=== PATIENT | male | born 1945 | race Caucasian/White ===

== ENCOUNTER → 2017-06-20 | Outpatient (REF) ==
[2017-06-20 09:40] LABS: HEMATOCRIT 35.5 % (42.0-52.0); MEAN CORPUSCULAR HEMOGLOBIN 33.2 pg (27.0-33.0); MEAN CORPUSCULAR HGB CONC 33.8 g/dl (32.0-36.5); MEAN CORPUSCULAR VOLUME 98.3 fl (80.0-96.0); PLATELET COUNT, AUTOMATED 217 10^3/uL (150-450); RED BLOOD COUNT 3.61 10^6/uL (4.30-6.10); RED CELL DISTRIBUTION WIDTH 14.7 % (11.5-14.5); WHITE BLOOD COUNT 6.9 10^3/uL (4.0-10.0)
== END ==
DX: Z96.651 Presence of right artificial knee joint (principal); Z79.01 Long term (current) use of anticoagulants

== ENCOUNTER → 2017-06-24 | Outpatient (REF) ==
[2017-06-24 10:38] LABS: HEMATOCRIT 38.8 % (42.0-52.0); MEAN CORPUSCULAR HEMOGLOBIN 33.2 pg (27.0-33.0); MEAN CORPUSCULAR HGB CONC 33.5 g/dl (32.0-36.5); MEAN CORPUSCULAR VOLUME 99.2 fl (80.0-96.0); PLATELET COUNT, AUTOMATED 241 10^3/uL (150-450); RED BLOOD COUNT 3.91 10^6/uL (4.30-6.10); RED CELL DISTRIBUTION WIDTH 14.8 % (11.5-14.5); WHITE BLOOD COUNT 6.8 10^3/uL (4.0-10.0)
[2017-06-24 11:01] LABS: ANION GAP 9 MEQ/L (8-16); BLOOD UREA NITROGEN 8 MG/DL (7-18); CALCIUM LEVEL 8.9 MG/DL (8.8-10.2); CARBON DIOXIDE LEVEL 27 MEQ/L (21-32); CHLORIDE LEVEL 102 MEQ/L (98-107); CREATININE FOR GFR 0.57 MG/DL (0.70-1.30); GLOMERULAR FILTRATION RATE > 60.0 (>42); GLUCOSE, FASTING 122 MG/DL (70-100); POTASSIUM SERUM 4.3 MEQ/L (3.5-5.1); SODIUM LEVEL 138 MEQ/L (136-145)
== END ==
DX: I10 Essential (primary) hypertension (principal)

== ENCOUNTER 2017-12-11 16:58 | Emergency (ER) | payer OTHER ==
[2017-12-11 17:58] LABS: BASO % 0.5 % (0.0-1.0); EOS # 0.2 10^3/uL (0.0-0.50); EOS % 3.7 % (0.0-3.0); HEMATOCRIT 26.8 % (42.0-52.0); HEMOGLOBIN 8.5 g/dl (13.5-17.5); IMMATURE GRANULOCYTE % 0.9 % (0-3.0); LYMPH # 1.7 10^3/uL (1.5-4.5); LYMPH % 30.3 % (24.0-44.0); MEAN CORPUSCULAR HEMOGLOBIN 29.7 pg (27.0-33.0); MEAN CORPUSCULAR HGB CONC 31.7 g/dl (32.0-36.5); MEAN CORPUSCULAR VOLUME 93.7 fl (80.0-96.0); MONO % 17.3 % (0.0-5.0); NEUTROPHILS # 2.7 10^3/uL (1.8-7.7); NEUTROPHILS % 47.3 % (36.0-66.0); PLATELET COUNT, AUTOMATED 160 10^3/uL (150-450); RED BLOOD COUNT 2.86 10^6/uL (4.30-6.10); RED CELL DISTRIBUTION WIDTH 16.5 % (11.5-14.5); WHITE BLOOD COUNT 5.7 10^3/uL (4.0-10.0)
[2017-12-11 18:04] LABS: ANION GAP 9 MEQ/L (8-16); BLOOD UREA NITROGEN 6 MG/DL (7-18); CALCIUM LEVEL 7.9 MG/DL (8.8-10.2); CARBON DIOXIDE LEVEL 26 MEQ/L (21-32); CHLORIDE LEVEL 100 MEQ/L (98-107); CREATININE FOR GFR 0.56 MG/DL (0.70-1.30); GLOMERULAR FILTRATION RATE > 60.0 (>42); GLUCOSE, FASTING 135 MG/DL (70-100); POTASSIUM SERUM 3.6 MEQ/L (3.5-5.1); SODIUM LEVEL 135 MEQ/L (136-145)
[2017-12-11 18:53] LABS: ALBUMIN 2.6 GM/DL (3.2-5.2); ALKALINE PHOSPHATASE 106 U/L (45-117); ALT/SGPT 37 U/L (12-78); AST/SGOT 57 U/L (7-37); BILIRUBIN,DIRECT 0.5 MG/DL (0.0-0.2); BILIRUBIN,TOTAL 1.1 MG/DL (0.2-1.0); C REACTIVE PROTEIN QUANTITATIV 8.22 MG/DL (0.00-0.30); CPK CREATINE PHOSPHOKINASE 275 U/L (39-308); MB/CK RELATIVE INDEX 0.55 (< OR =4); NT-PRO BNP 107 PG/ML (<125); TOTAL PROTEIN 6.3 GM/DL (6.4-8.2); TROPONIN I < 0.02 NG/ML (< 0.10)
== END 2017-12-11 21:42 | disposition short-term general hospital (02) ==
LOC: M ED 16:58
DX: G89.18 Other acute postprocedural pain (principal); E11.21 Type 2 diabetes mellitus with diabetic nephropathy; J44.9 Chronic obstructive pulmonary disease, unspecified; I87.2 Venous insufficiency (chronic) (peripheral); I10 Essential (primary) hypertension; E78.5 Hyperlipidemia, unspecified; M19.90 Unspecified osteoarthritis, unspecified site; M10.9 Gout, unspecified; Z88.8 Allergy status to other drugs, medicaments and biological substances; Z88.5 Allergy status to narcotic agent; Z87.891 Personal history of nicotine dependence; Z79.899 Other long term (current) drug therapy; Z79.82 Long term (current) use of aspirin
CPT/HCPCS: 71045

== ENCOUNTER → 2017-12-11 | Outpatient (REF) ==
[2017-12-11 08:33] LABS: HEMATOCRIT 27.4 % (42.0-52.0); HEMOGLOBIN 8.7 g/dl (13.5-17.5); MEAN CORPUSCULAR HEMOGLOBIN 29.9 pg (27.0-33.0); MEAN CORPUSCULAR HGB CONC 31.8 g/dl (32.0-36.5); MEAN CORPUSCULAR VOLUME 94.2 fl (80.0-96.0); PLATELET COUNT, AUTOMATED 158 10^3/uL (150-450); RED BLOOD COUNT 2.91 10^6/uL (4.30-6.10); RED CELL DISTRIBUTION WIDTH 16.4 % (11.5-14.5); WHITE BLOOD COUNT 4.8 10^3/uL (4.0-10.0)
[2017-12-11 08:56] LABS: AMMONIA 27 uMOL/L (<32)
[2017-12-11 09:13] LABS: ALBUMIN 2.6 GM/DL (3.2-5.2); ALBUMIN/GLOBULIN RATIO 0.68 (1.00-1.93); ALKALINE PHOSPHATASE 102 U/L (45-117); ALT/SGPT 37 U/L (12-78); ANION GAP 9 MEQ/L (8-16); AST/SGOT 56 U/L (7-37); BILIRUBIN,TOTAL 1.4 MG/DL (0.2-1.0); BLOOD UREA NITROGEN 6 MG/DL (7-18); CALCIUM LEVEL 8.3 MG/DL (8.8-10.2); CARBON DIOXIDE LEVEL 29 MEQ/L (21-32); CHLORIDE LEVEL 98 MEQ/L (98-107); CREATININE FOR GFR 0.47 MG/DL (0.70-1.30); GLOMERULAR FILTRATION RATE > 60.0 (>42); GLUCOSE, FASTING 117 MG/DL (70-100); POTASSIUM SERUM 3.5 MEQ/L (3.5-5.1); SODIUM LEVEL 136 MEQ/L (136-145); TOTAL PROTEIN 6.4 GM/DL (6.4-8.2)
[2017-12-11 11:32] LABS: ESTIMATED AVERAGE GLUCOSE 128 MG/DL (60-110); HEMOGLOBIN A1c 6.1 %
== END ==
LOC: SKLAB2 08:00
DX: K74.60 Unspecified cirrhosis of liver (principal); I10 Essential (primary) hypertension; E11.9 Type 2 diabetes mellitus without complications

== ENCOUNTER 2019-04-21 20:20 | Inpatient (IN) | payer OTHER, MEDICARE ==
[~2019-04-21] VITALS: Ht 167.6 cm; Wt 96.5 kg
[~2019-04-21 20:20] MED LIST: ACET65TA; ALBU83IN; ALLO10TA PO; AMLO10TA5 PO; AMLO10TAB; ASPI325T57 PO; ASPI81TA26 PO; ATIV0.5T; CELE40TA; CLAR5CHW; COLA100C5 PO; DULC10SU2 PR; DULO1CAP5 PO; ENEMENE6 PR; FLOM0.4C39 PO; INCR1INH INH; LEVA500T; LISI40TA; LORA10TA3 PO; MILK120011 PO; MOBI4TAB PO; OMEP40CA97 PO; OXYC-517 PO; PRAV40TA; PRED10TA2; PRED5TAB; PRIL20CA; SPIR1CAP; SYMB16INH INH; SYMB80AE; TYLE325T5 PO; VENTAER INH; VITMTA PO
[2019-04-21] MEDS ORDERED: NS 500 ML IV ONE (21:00)
[2019-04-21] MEDS ORDERED: ONDANSETRON 4MG/2ML VIAL (J2405) IV ONE (21:00)
[2019-04-21] MEDS ORDERED: IPRATROPIUM 0.5MG/ALBUTEROL 2.5MG INH SOL UD 3ML (DUONEB)(J7620) NEB PRN (21:00)
[2019-04-21 21:18] LABS: VENOUS BASE EXCESS -3.6 (-2.0-2.0); VENOUS HCO3 19.2 MEQ/L (23.0-27.0); VENOUS O2 SATURATION 99.4 % (60.0-80.0); VENOUS PARTIAL PRESSURE CO2 27.9 mmHg (38.0-50.0); VENOUS PARTIAL PRESSURE O2 161.9 mmHg (30.0-50.0); VENOUS PH 7.456 UNITS (7.330-7.430); VENOUS STANDARD HCO3 21.5 MEQ/L; VENOUS TOTAL CO2 20.1 MEQ/L (24.0-28.0)
[2019-04-21 21:28] LABS: HEMATOCRIT 30.8 % (42.0-52.0); HEMOGLOBIN 10.4 g/dl (13.5-17.5); MEAN CORPUSCULAR HEMOGLOBIN 30.1 pg (27.0-33.0); MEAN CORPUSCULAR HGB CONC 33.8 g/dl (32.0-36.5); MEAN CORPUSCULAR VOLUME 89.3 fl (80.0-96.0); RED BLOOD COUNT 3.45 10^6/uL (4.30-6.10); WHITE BLOOD COUNT 12.3 10^3/uL (4.0-10.0)
[2019-04-21 21:47] LABS: BLOOD UREA NITROGEN 14 MG/DL (7-18); CALCIUM LEVEL 7.8 MG/DL (8.8-10.2); CARBON DIOXIDE LEVEL 20 MEQ/L (21-32); CHLORIDE LEVEL 100 MEQ/L (98-107); CK-MB VALUE MASS < 1.0 NG/ML (<3.6); CPK CREATINE PHOSPHOKINASE 112 U/L (39-308); CREATININE FOR GFR 1.13 MG/DL (0.70-1.30); GLOMERULAR FILTRATION RATE > 60.0 (>42); GLUCOSE, FASTING 137 MG/DL (70-100); MB/CK RELATIVE INDEX 0.89 (< OR =4); NT-PRO BNP 486 PG/ML (<125); POTASSIUM SERUM 4.7 MEQ/L (3.5-5.1); SODIUM LEVEL 131 MEQ/L (136-145); TROPONIN I < 0.02 NG/ML (< 0.10)
[2019-04-21 21:49] LABS: INFLUENZA A AMPLIFICATION NEGATIVE (NEGATIVE); INFLUENZA B AMPLIFICATION NEGATIVE (NEGATIVE)
[2019-04-21 22:16] LABS: PLATELET COUNT, AUTOMATED 66 10^3/uL (150-450)
[2019-04-21 22:25] LABS: LYMPHOCYTES 5 % (16-44); MONOCYTES 4 % (0-5); NEUTROPHILS 78 % (28-66)
[2019-04-21 22:26] LABS: PLATELET ESTIMATE MARKED DECREASE (NORMAL)
[2019-04-21] MEDS ORDERED: methylPREDNISolone INJ 125 MG/2 ML VIAL (J2930) IV ONE (22:30)
[2019-04-21] MEDS ORDERED: ISOVUE-370 76% 100ML VIAL (Q9967) As Ordered ONE (22:44)
--- NOTE | 2019-04-21 23:41 | REPVR ---
PROCEDURE INFORMATION: Exam: CT Angiography Chest With Contrast Exam date and time: 04/21/2019 10:26 PM Age: 73 years old Clinical indication: Shortness of breath; Additional info: Difficulty breathing, SOB, fever TECHNIQUE: Imaging protocol: Computed tomographic angiography of the chest with intravenous contrast. 3D rendering: MIP and/or 3D reconstructed images were created by the technologist. Radiation optimization: All CT scans at this facility use at least one of these dose optimization techniques: automated exposure control; mA and/or kV adjustment per patient size (includes targeted exams where dose is matched to clinical indication); or iterative reconstruction. Contrast material: ISO; Contrast volume: 75 ml; Contrast route: AC; COMPARISON: CR Chest, 2 view PA, Lat 04/21/2019 9:01 PM FINDINGS: Pulmonary arteries: Nondiagnostic for evaluation for pulmonary embolism, secondary to timing of IV contrast. Aorta: Mild atherosclerotic calcifications of the aorta. No evidence of dissection or aneurysm. Lungs: No focal areas of consolidation. Pleural space: No pleural effusion or pneumothorax. Heart: Unremarkable. No pericardial effusion. Liver: Nodular contour to the liver, concerning for cirrhosis. Gallbladder and bile ducts: Hydropic gallbladder. Spleen: Multiple calcified granulomas in the spleen. Intraperitoneal space: Moderate degree of intra-abdominal ascites. Lymph nodes: No enlarged lymph nodes. Bones/joints: Multilevel mild degenerative changes of the visualized spine. Soft tissues: Unremarkable. IMPRESSION: 1. No acute findings in the thorax. Nondiagnostic for evaluation for pulmonary embolism, secondary to timing of IV contrast. 2. Moderate degree of intra-abdominal ascites. 3. Nodular contour to the liver, concerning for cirrhosis. 4. Hydropic gallbladder. Correlate clinically with LFTs. 5. Other chronic findings, as above. Electronically signed by: Dhiraj Hernandez On 04/21/2019 23:41:21 PM
[2019-04-22] VITALS (10 sets, daily range): BP systolic 120–140; BP diastolic 59–76; O2SAT 98
[2019-04-22] MEDS ORDERED: PIPERACILLIN/TAZOBACTAM SOD 3.375 GM in D5W MINI-BAG PLUS 50 ML IV ONE ×2
[2019-04-22] MEDS ORDERED: NS 2,240 ML in IV 1 EA IV ONE (00:30)
--- NOTE | 2019-04-22 00:33 | HPEPDOC ---
[facility] Medical History & Physical Date of Admission Apr 22, 2019 Date of Service: Apr 22, 2019 Attending Physician: MILES GRIFFITH MD History and Physical TIME OF SERVICE: 1:50 AM CHIEF COMPLAINT:, Shortness of breath HISTORY OF PRESENT ILLNESS: Since 73-year-old male who presents with complaints of shortness of breath, worsening of his chronic cough, associated with chills, runny nose and sore t hroat. He denies having fever, muscle aches or weight loss. Per discussion with the ER provider, despite receiving Solu-Medrol and nebs. The patient continues to be short of breath. REVIEW OF SYSTEMS: 12 point review of systems negative except as listed in HPI PAST MEDICAL/ SURGICAL HISTORY: COPD Chronic Hypertension PVD NIDDM with neuropathy Liver cirrhosis Gout Status post left hip surgery Status post bilateral knee surgery SOCIAL HISTORY: He quit smoking FAMILY HISTORY: Diabetes ALLERGIES: Please see below. HOME MEDICATIONS: Please see below. PHYSICAL EXAMINATION: Vital Signs Date Time Temp Pulse Resp B/P (MAP) Pulse Ox O2 Delivery O2 Flow Rate FiO2 04/22/19 05:59 129/63 04/22/19 03:30 98.6 99 21 140/68 (92) 98 Room Air 04/22/19 03:06 98.9 98 24 166/73 (104) 96 Room Air 04/22/19 02:55 04/22/19 00:06 99.5 103 20 122/59 (80) 98 Room Air 04/21/19 21:25 Room Air 04/21/19 20:21 100.3 116 16 129/59 (82) 97 Room Air GEN: well nourished / well developed/ NAD INTEGUMENT: He doesn't have facial plethora , but appears to be slightly jaundice HEENT:NCAT / lips are not cyanotic / he doesn't have pursed lip breathing / mucus membranes moist and pink CVS: RRR/ radial pulses intact LUNGS: He doesn't have nasal flaring /he is able to able to speak full sentences without stopping to take a breath / he is coughing / there is decreased respiratory expansion along with bilateral expiratory wheezing/ is forced expiratory time is > 9 sec ABDOMEN: soft & not tender with palpation MSK/EXTREMITIES: Doesn't have finger nail clubbing NEURO: CN 2-12 are grossly intact / speech is not dysarthric / he doesn't have asterixis PSYCH: alert and oriented to person place and time/ able to understand and follow all commands LABORATORY DATA: IMAGING: CT chest " IMPRESSION: 1. No acute findings in the thorax. Nondiagnostic for evaluation for pulmonary embolism, secondary to timing of IV contrast. 2. Moderate degree of intra-abdominal ascites. 3. Nodular contour to the liver, concerning for cirrhosis. 4. Hydropic gallbladder. Correlate clinically with LFTs. 5. Other chronic findings, as above. " MICROBIOLOGY: Please see below. ASSESSMENT: Mr. Denise is a 73-year-old male with a past history of COPD, hypertension, NIDDM, and liver cirrhosis who is admitted for management of COPD exacerbation, likely due to viral infection. PLAN: 1. SIRS, likely reactive secondary to viral URI. SIRS criteria include HR >90 / WBC >12 or <4 / > RR 20 His initial lactic acid was 5.3 We were unable to identify source of infection. He received Zosyn and IV fluids in the ER Plan: admit to medical floor / telemetry / f/u repeat lactic acid /we will not continue with abx bc we don't have a bacterial source of infection / f/u blood cx / Acetaminophen PRN for fever 2. Acute COPD Trigger may be viral infection Plan: admit to PCU / supplemental O2 / continuous pulse oximetry / aspiration precautions / COPD diet / Dunebs Q6H, Albuterol Q4HP, Prednisone + PPI / refer to Coding Clerks Supervisor for repeat PFTs and Pulmonary Rehab when ready for d/c 3. Chronic Hypertension - Plan: c/w home meds 4. PVD - Plan: c/w home meds 5. Gout - Plan: c/w home meds 6. NIDDM with neuropathy Diabetes - Plan: diabetic diet / f/u accuchecks & A1C / hypoglycemia protocol / sliding scale insulin / hold oral anti-glycemics 7. Liver cirrhosis.- Plan: Follow-up LFTs DVT PROPHYLAXIS: SCDs because of low platelets DISPOSITION: Home after more than 2 midnight's stay Home Medications Scheduled Allopurinol (Allopurinol) 100 Mg Tab, 100 MG PO DAILY Aspirin (Aspirin EC) 81 Mg Tab, 81 MG PO DAILY Budesonide/Formoterol (Symbicort 160-4.5 Mcg Inhaler) 60 Puff/Inhaler Aers, 2 PUFF INH BID Duloxetine Hcl (Duloxetine HCl) 30 Mg Cap, 30 MG PO DAILY Finasteride (Finasteride) 5 Mg Tablet, 5 MG PO DAILY Lisinopril (Lisinopril) 10 Mg Tablet, 10 MG PO QHS Loratadine (Loratadine) 10 Mg Tab, 10 MG PO DAILY Metformin HCl (Metformin HCl) 500 Mg Tablet, 500 MG PO BIDWM Pantoprazole Sodium (Pantoprazole Sodium) 40 Mg Tablet.dr, 40 MG PO BID Polyethylene Glycol 3350 (Miralax) 17 Gm Powd.pack, 17 GM PO DAILY Spironolactone (Spironolactone) 50 Mg Tablet, 50 MG PO DAILY Tiotropium [place] (Spiriva) 18 Mcg Cap.w.dev, 1 INHALATION INH DAILY Scheduled PRN Albuterol Sulf (Albuterol Sulfate) 2.5 Mg/3 Ml Vial.neb, 2.5 MG INH Q6H PRN for SHORTNESS OF BREATH Albuterol Sulfate (Ventolin Hfa) 108 Mcg/Act Aer, 2 PUFFS INH Q6H PRN for SHORTNESS OF BREATH Diclofenac Sodium (Diclofenac Sodium) 1% 100GM Gel..gram., 2 GM TOP Q8H PRN for PAIN USES ON RIGHT HIP AND KNEE Fluticasone Propionate (Flonase Allergy Relief) 9.9 Ml Golden.susp, 2 SPRAYS NA DAILY PRN for NASAL CONGESTION Guaifenesin (Guaifenesin) 400 Mg Tablet, 400 MG PO Q6H PRN for COUGH Lidocaine (Lidocaine) 5% Adh..patch, 1 PATCH TOP DAILY PRN for PAIN USES ON RIGHT HIP AND KNEE Allergies Coded Allergies: aspirin (Verified Allergy, Intermediate, unknown, 04/21/19) A-FIB/CHADSVASC A-FIB History Current/History of A-Fib/PAF?: No Current PO Anticoag Therapy: No MILES GRIFFITH MD Apr 22, 2019 00:33
[2019-04-22] MEDS ORDERED: MOM 30ML SUSPENSION UDC PO PRN (01:00)
[2019-04-22] MEDS ORDERED: MAALOX 30 ML SUSP *UDC PO PRN (01:00)
[2019-04-22] MEDS ORDERED: LEVALBUTEROL 1.25 MG/0.5 ML CONCENTRATE NEB INH PRN (01:00)
[2019-04-22] MEDS ORDERED: GUAI400T9 PO (01:03)
[2019-04-22] MEDS ORDERED: PANT40TA3 PO (01:03)
[2019-04-22] MEDS ORDERED: DICL1GEL3 TOP (01:03)
[2019-04-22] MEDS ORDERED: ALBU83IN INH (01:03)
[2019-04-22] MEDS ORDERED: LISI10TA4 PO (01:03)
[2019-04-22] MEDS ORDERED: METF-839 PO (01:03)
[2019-04-22] MEDS ORDERED: SPIR50TA4 PO (01:03)
[2019-04-22] MEDS ORDERED: MIRA1POW3 PO (01:03)
[2019-04-22] MEDS ORDERED: LIDO5TD TOP (01:03)
[2019-04-22] MEDS ORDERED: SPIR1CAP INH (01:03)
[2019-04-22] MEDS ORDERED: FINA5TAB2 PO (01:03)
[2019-04-22] MEDS ORDERED: FLON1SPR (01:03)
[2019-04-22] MEDS ORDERED: NS 500 ML IV ONE (01:15)
[2019-04-22] MEDS ORDERED: FLUTICASONE PROP 0.05% NASAL SPRAY 16 GM (FLONASE) PRN (02:45)
[2019-04-22] MEDS: IPRATROPIUM 0.5MG/ALBUTEROL 2.5MG INH SOL UD 3ML (DUONEB)(J7620) NEB SCH ×4 (02:55→22:02)
[2019-04-22] MEDS: DOCUSATE SODIUM 100 MG CAP PO SCH ×3 (05:38→20:34)
[2019-04-22] MEDS: ACETAMINOPHEN TAB 650MG DOSE (2X325MG) PO PRN ×2 (05:59→20:36)
[2019-04-22] MEDS: lisinopriL 10 MG TAB PO SCH ×2 (05:59→20:35)
--- NOTE | 2019-04-22 06:01 | ECGEPIP ---
[facility] - ED Test Date: 2019-04-21 Pat Name: GALLITO KIMBROUGH Department: Room: - Gender: Male Trial Paralegal: sb : 1945 Requested By: RIVER Dc PA-C Order Number: [id number] Reading MD: Stefan Hammond Measurements Intervals [place] Rate: 108 P: -1 NC: 148 QRS: 71 QRSD: 82 T: 73 QT: 339 QTc: 455 Interpretive Statements SINUS TACHYCARDIA NO PRIORS FOR COMPARISON Electronically Signed on 04-22-2019 6:01:02 EST by Stefan Hammond
[2019-04-22 07:02] LABS: HEMATOCRIT 28.2 % (42.0-52.0); HEMOGLOBIN 9.5 g/dl (13.5-17.5); MEAN CORPUSCULAR HEMOGLOBIN 30.5 pg (27.0-33.0); MEAN CORPUSCULAR HGB CONC 33.7 g/dl (32.0-36.5); MEAN CORPUSCULAR VOLUME 90.7 fl (80.0-96.0); RED BLOOD COUNT 3.11 10^6/uL (4.30-6.10); WHITE BLOOD COUNT 8.8 10^3/uL (4.0-10.0)
[2019-04-22 07:05] LABS: PLATELET COUNT, AUTOMATED 68 10^3/uL (150-450)
[2019-04-22 07:23] LABS: HEMOGLOBIN A1c 5.3 %
[2019-04-22 07:28] LABS: ALBUMIN 1.8 GM/DL (3.2-5.2); ALT/SGPT 23 U/L (12-78); BILIRUBIN,TOTAL 1.1 MG/DL (0.2-1.0); BLOOD UREA NITROGEN 14 MG/DL (7-18); CALCIUM LEVEL 7.3 MG/DL (8.8-10.2); CARBON DIOXIDE LEVEL 23 MEQ/L (21-32); CHLORIDE LEVEL 101 MEQ/L (98-107); GLOMERULAR FILTRATION RATE > 60.0 (>42); GLUCOSE, FASTING 173 MG/DL (70-100); POTASSIUM SERUM 4.5 MEQ/L (3.5-5.1); SODIUM LEVEL 131 MEQ/L (136-145); TOTAL PROTEIN 6.8 GM/DL (6.4-8.2)
--- NOTE | 2019-04-22 07:51 | REP ---
PA and lateral chest: Comparison is the portable chest dated 12/11/2017. The lung portillo are clear. The cardiac size is normal. The marina, mediastinum, and skeletal structures are unremarkable. Impression: Negative PA and lateral chest. There is no interval change. Electronically Signed by Geoffrey Mei MD 04/22/2019 07:43 A
[2019-04-22] MEDS: TIOTROPIUM INHALER/CAPSULE (SPIRIVA) INH SCH (08:45)
[2019-04-22] MEDS: MIRALAX *UNIT DOSE* 17GM PACKET PO SCH ×2 (09:00→10:26)
[2019-04-22] MEDS ORDERED: predniSONE 20 MG TAB PO SCH (09:00)
--- NOTE | 2019-04-22 09:53 | REP ---
Limited abdominal ultrasound for ascites: All four quadrants of the abdomen and the right and left flanks are evaluated. There is minimal ascites. Paracentesis is not performed. Electronically Signed by Geoffrey Mei MD 04/22/2019 09:44 A
[2019-04-22] MEDS: DULoxetine 30 MG CAP (CYMBALTA) PO SCH (10:25)
[2019-04-22] MEDS: PANTOPRAZOLE 40MG TAB (PROTONIX) PO SCH (10:25)
[2019-04-22] MEDS: SPIRONOLACTONE 50 MG TAB PO SCH (10:26)
[2019-04-22] MEDS: FINASTERIDE 5 MG TAB PO SCH (10:26)
[2019-04-22] MEDS: LORATADINE 10 MG TAB PO SCH (10:26)
[2019-04-22] MEDS: LIDOCAINE 5% (LIDODERM) PATCH TOP PRN (10:26)
[2019-04-22] MEDS: allopurinoL 100 MG TAB PO SCH (10:26)
--- NOTE | 2019-04-22 11:29 | IPNPDOC ---
Text Note Date of Service The patient was seen on 04/22/19. NOTE Subjective: Patient is 73-year-old male with a PMHx of Liver cirrhosis, HTN, PVD, COPD, NIDDM2, Neuropathy, Gout . Presented to the emergency room with complaints of shortness of breath, worsening of his productive cough, associated chills and symptoms of an upper respiratory tract infection. Patient was admitted to hospitalist service for further evaluation and treatment Patient was seen and examined at the bedside. Patient is that he still is short of breath. Denies chest pain, palpitations, nausea, vomiting. Has been extrinsic a productive cough. Denies any diarrhea, constipation or abdominal pain. Denies any urinary discomfort Objective: Vitals (See below) General: Lying in bed, no acute distress, comfortable, AAOx3 HEENT: NC, AT CVS: RRR, +S1S2 Lungs: Fair air entry b/l, no wheezing / rhonchi, mild crackles appreciated at bases Abdomen: Soft, mild distension, NT Extremities: Trace pitting edema, - Calf tenderness Assessment and plan: Shortness of breath - likely 2/2 acute exacerbation of COPD - Presented to the ER with complaints of shortness of breath associated with productive cough and URTI symptoms - Physical does not reveal any evidence of significant wheezing at this time - Influenza negative - CTA chest 04/21: 1. No acute findings in the thorax. Nondiagnostic for ev aluation for pulmonary embolism, secondary to timing of IV contrast. 2. Moderate degree of intra-abdominal ascites. 3. Nodular contour to the liver, concerning for cirrhosis. 4. Hydropic gallbladder. Correlate clinically with LFTs. 5. Other chronic findings, as above. - Will check respiratory panel today - c/w inhaled therapy as ordered - c/w corticosteroid therapy Preliminary positive blood cultures (1 of 2 bottles) - possibly 2/2 contaminant - Clinically patient is afebrile and hemodynamically stable - Blood cultures 04/21 (1 of 2): Gram positive cocci in clusters - Will repeat blood cultures - Will check procalcitonin - Was given a single dose of Zosyn in the emergency room Lactic acidosis - likely 2/2 respiratory etiology - 2/2 work of breathing - Continue with management of COPD as delineated above HTN - BP remains well controlled - c/w Lisinopril PVD - Currently not on any medications Gout - c/w Allopurinol NIDDM with neuropathy - c/w ISS BPH - c/w Finasteride Cirrhosis - Some abdominal distension noted - Will check US of abdomen GERD - c/w Protonix DVT prophylaxis - c/w TEDs/ Sequentials (re: Thrombocytopenia) VS,Fishbone, I+O VS, Fishbone, I+O Laboratory Tests 04/21/19 21:04 04/22/19 06:45 Vital Signs Date Time Temp Pulse Resp B/P (MAP) Pulse Ox O2 Delivery O2 Flow Rate FiO2 04/22/19 10:00 98.0 105 18 126/63 (84) 96 Room Air I&O- Last 24 Hours up to 6 AM 04/22/19 06:00 Intake Total 2790 ml Output Total 0 ml Balance 2790 ml MAUREEN LOWRY MD Apr 22, 2019 11:29
[2019-04-22] MEDS ORDERED: GLUCOSE 4 GM CHEW TABLET PO PRN (11:30)
[2019-04-22] MEDS ORDERED: GLUCAGON FOR INJ 1 MG VIAL (J1610) SC PRN (11:30)
[2019-04-22] MEDS ORDERED: DEXTROSE 50% 50 ML SYRINGE IV PRN (11:30)
[2019-04-22] MEDS ORDERED: ALBUTEROL SULFATE 2.5 MG/0.5 ML INH NEB SOLN INH PRN (12:00)
[2019-04-22 12:22] LABS: ABG BASE EXCESS -2.7 (-2.0-2.0); ABG HCO3 19.7 MEQ/L (22.0-26.0); ABG O2 SATURATION 96.9 % (95.0-99.0); ABG PARTIAL PRESSURE O2 83.2 mmHg (75.0-100.0); ABG STANDARD HCO3 22.2 MEQ/L (22.0-26.0); ABG TOTAL CO2 20.6 MEQ/L (23.0-31.0); ABG pH (ARTERIAL) 7.482 UNITS (7.350-7.450)
[2019-04-22] MEDS: HumaLOG INSULIN (NovoLOG) PER UNIT SC SCH ×3 (12:30→20:35)
[2019-04-22] MEDS ORDERED: FUROSEMIDE 40 MG/4 ML VIAL (J1940) IV ONE (13:00)
[2019-04-22] MEDS ORDERED: methylPREDNISolone INJ 125 MG/2 ML VIAL (J2930) IV ONE (13:00)
--- NOTE | 2019-04-22 13:08 | REP ---
Chest x-ray: Single view. History: Shortness of breath. Comparison chest x-ray: December 11, 2017. Findings: EKG monitoring electrodes overlie the chest. Lungs are well inflated and clear. Pleural angles are sharp. Heart size is normal. No significant bony abnormality. Impression: No acute disease. Electronically Signed by Graham Coreas MD 04/22/2019 01:00 P
[2019-04-22 13:11] LABS: CK-MB VALUE MASS 2.3 NG/ML (<3.6); CPK CREATINE PHOSPHOKINASE 148 U/L (39-308); MB/CK RELATIVE INDEX 1.55 (< OR =4); TROPONIN I < 0.02 NG/ML (< 0.10)
[2019-04-22] MEDS ORDERED: ALBUTEROL SULFATE 2.5 MG/0.5 ML INH NEB SOLN INH SCH (16:00)
[2019-04-22] MEDS: methylPREDNISolone INJ 125 MG/2 ML VIAL (J2930) IV SCH (20:35)
[2019-04-22] MEDS: CEPACOL LOZENGE PO PRN ×2 (20:37→23:55)
[2019-04-22] MEDS ORDERED: **NOTE PATIENT COMMENT** MISC XX PRN (21:00)
[2019-04-22] MEDS: guaiFENesin 200 MG TAB PO PRN (21:52)
[2019-04-23] VITALS (30 sets, daily range): BP systolic 113–171; BP diastolic 53–79; O2SAT 95–99
[2019-04-23] MEDS: IPRATROPIUM 0.5MG/ALBUTEROL 2.5MG INH SOL UD 3ML (DUONEB)(J7620) NEB SCH ×6 (01:55→23:36)
[2019-04-23] MEDS ORDERED: FUROSEMIDE 40 MG/4 ML VIAL (J1940) IV ONE (03:15)
[2019-04-23] MEDS ORDERED: cefTRIAXone SOD 1 GM in D5W MINI-BAG PLUS 50 ML IV SCH (04:00)
[2019-04-23] MEDS: CEPACOL LOZENGE PO PRN (04:03)
[2019-04-23] MEDS: guaiFENesin 200 MG TAB PO PRN (04:03)
[2019-04-23] MEDS: LEVALBUTEROL 1.25 MG/0.5 ML CONCENTRATE NEB INH PRN ×2 (04:31→22:19)
[2019-04-23] MEDS: GASTROGRAFIN SOLUTION 30ML PO SCH ×2 (05:00→18:00)
[2019-04-23] MEDS: methylPREDNISolone INJ 125 MG/2 ML VIAL (J2930) IV SCH (05:34)
[2019-04-23 06:24] LABS: ABG BASE EXCESS -2.2 (-2.0-2.0); ABG HCO3 19.3 MEQ/L (22.0-26.0); ABG O2 SATURATION 99.2 % (95.0-99.0); ABG PARTIAL PRESSURE O2 121.6 mmHg (75.0-100.0); ABG STANDARD HCO3 22.6 MEQ/L (22.0-26.0); ABG TOTAL CO2 20.1 MEQ/L (23.0-31.0); ABG pH (ARTERIAL) 7.524 UNITS (7.350-7.450)
[2019-04-23 06:31] LABS: HEMATOCRIT 28.1 % (42.0-52.0); HEMOGLOBIN 9.9 g/dl (13.5-17.5); MEAN CORPUSCULAR HEMOGLOBIN 30.5 pg (27.0-33.0); MEAN CORPUSCULAR HGB CONC 35.2 g/dl (32.0-36.5); MEAN CORPUSCULAR VOLUME 86.5 fl (80.0-96.0); RED BLOOD COUNT 3.25 10^6/uL (4.30-6.10); WHITE BLOOD COUNT 14.4 10^3/uL (4.0-10.0)
[2019-04-23 06:39] LABS: PLATELET COUNT, AUTOMATED 60 10^3/uL (150-450)
[2019-04-23 06:53] LABS: BLOOD UREA NITROGEN 22 MG/DL (7-18); CALCIUM LEVEL 7.4 MG/DL (8.8-10.2); CARBON DIOXIDE LEVEL 21 MEQ/L (21-32); CHLORIDE LEVEL 95 MEQ/L (98-107); GLOMERULAR FILTRATION RATE > 60.0 (>42); GLUCOSE, FASTING 175 MG/DL (70-100); MAGNESIUM LEVEL 1.2 MG/DL (1.8-2.4); POTASSIUM SERUM 4.3 MEQ/L (3.5-5.1); SODIUM LEVEL 125 MEQ/L (136-145)
[2019-04-23] MEDS: ACETAMINOPHEN TAB 650MG DOSE (2X325MG) PO PRN (07:01)
[2019-04-23] MEDS: HumaLOG INSULIN (NovoLOG) PER UNIT SC SCH ×4 (07:30→20:31)
[2019-04-23] MEDS: TIOTROPIUM INHALER/CAPSULE (SPIRIVA) INH SCH (07:53)
[2019-04-23] MEDS ORDERED: VANCOMYCIN HCL 1,000 MG, VIAL MATE ADAPTER 1 EACH in D5W 250 ML IV ONE (08:00)
[2019-04-23 08:59] LABS: NT-PRO BNP 929 PG/ML (<125)
[2019-04-23] MEDS: FUROSEMIDE 100 MG/10 ML VIAL (J1940) IV SCH ×4 (09:00→22:13)
[2019-04-23] MEDS ORDERED: MAGNESIUM OXIDE 400 MG TAB (MAG-OX) PO ONE (10:00)
[2019-04-23 10:14] LABS: ALBUMIN 1.9 GM/DL (3.2-5.2); BILIRUBIN,DIRECT 0.6 MG/DL (0.0-0.2); TOTAL PROTEIN 6.5 GM/DL (6.4-8.2)
[2019-04-23] MEDS: VANCOMYCIN HCL 1,000 MG, VIAL MATE ADAPTER 1 EACH in D5W 250 ML IV SCH ×2 (10:24→20:34)
[2019-04-23] MEDS: LORATADINE 10 MG TAB PO SCH (10:26)
[2019-04-23] MEDS: ASPIRIN 81 MG ENTERIC TAB PO SCH (10:26)
[2019-04-23] MEDS: SPIRONOLACTONE 50 MG TAB PO SCH (10:26)
[2019-04-23] MEDS: PANTOPRAZOLE 40MG TAB (PROTONIX) PO SCH (10:26)
[2019-04-23] MEDS: allopurinoL 100 MG TAB PO SCH (10:26)
[2019-04-23] MEDS: FINASTERIDE 5 MG TAB PO SCH (10:27)
[2019-04-23] MEDS: DOCUSATE SODIUM 100 MG CAP PO SCH ×2 (10:27→20:31)
[2019-04-23] MEDS: DULoxetine 30 MG CAP (CYMBALTA) PO SCH (10:27)
[2019-04-23] MEDS: MIRALAX *UNIT DOSE* 17GM PACKET PO SCH (10:36)
[2019-04-23] MEDS: MAG SULF 1GM/100ML (MAG RUN) 1 GM in IV 1 EA IV SCH ×2 (10:37→11:58)
[2019-04-23] MEDS ORDERED: POTASSIUM CHLORIDE 10 MEQ SR TABLET PO ONE (13:45)
--- NOTE | 2019-04-23 13:51 | IPNPDOC ---
Text Note Date of Service The patient was seen on 04/23/19. NOTE Subjective: Patient was seen and examined at the bedside. He has had tachypnea and tachycardia overnight, as well as increased work of breathing. His shortness of breath has not improved, and he says that he is unable to lie flat. He says that he feels like he is more swollen, especially in his lower legs and his abdomen. Objective: Vitals (See below) General: Propped up in bed, moderate respiratory distress HEENT: Sclera anicteric, mucous membranes are moist Neck: Obese, JVD unable to be adequately assessed Heart: Heart sounds are faint but tachycardic. No appreciable murmurs, gallops, or rubs Lungs: Increased accessory muscle usage, diffuse but mild inspiratory and expiratory rales, especially at the bases Abdomen: Obese, nonpitting edema in the dependent parts of the abdomen. Normoactive bowel sounds. Nondistended. Back: Sacral edema noted. Extremities: Nonpitting dependent edema diffusely up the thighs Assessment: Patient is 73-year-old male who presented to the emergency room with complaints of shortness of breath, worsening of his productive cough, associated chills and symptoms of an upper respiratory tract infection. Patient was admitted to hospitalist service, and given 6 L of IV fluids. He developed worsening shortness of breath, and is suspected to be fluid overloaded. Plan: Shortness of breath - likely secondary to fluid overload, +4 L fluid balance; transferred to ICU for increased work of breathing and moderate respiratory distress - Apparently is +20 pounds from his last outpatient office visit - Physical does not reveal any evidence of significant wheezing at this time. Influenza negative. Respiratory panel negative. - CTA chest 04/21: No acute findings in the thorax. Nondiagnostic for evaluation for pulmonary embolism, secondary to timing of IV contrast. - Steroids discontinued as this is not an exacerbation of COPD, c/w inhaled therapy as ordered - will diurese with Lasix 80 mg IV BID, BNP elevated compared to admission - ECHO ordered STAT, pending report Sepsis secondary to Staph aureus bacteremia, source unknown - First set of blood cultures positive for staph aureus bacteremia; second set of blood cultures show gram-positive cocci in clusters - Clinically patient is afebrile and hemodynamically stable - IV vancomycin - Will repeat blood cultures - Procalcitonin pending - Dr. Mason consulted, appreciate her help Lactic acidosis - likely 2/2 staph aureus bacteremia - IV vancomycin, clinically fluid overloaded HTN - BP remains well controlled - c/w Lisinopril - Currently being diuresed with Lasix PVD - Currently not on any medications Gout - c/w Allopurinol NIDDM with neuropathy - c/w ISS BPH - c/w Finasteride Cirrhosis - Some abdominal distension noted - Ultrasound of the abdomen did not show any pockets for paracentesis GERD - c/w Protonix DVT prophylaxis - c/w TEDs/ Sequentials (re: Thrombocytopenia) Disposition: Pending clinical improvement VS,Fishbone, I+O VS, Fishbone, I+O Laboratory Tests 04/23/19 06:18 Vital Signs Date Time Temp Pulse Resp B/P (MAP) Pulse Ox O2 Delivery O2 Flow Rate FiO2 04/23/19 12:40 98.5 111 27 158/77 100 Room Air I&O- Last 24 Hours up to 6 AM 04/23/19 06:00 Intake Total 3870 ml Output Total 2300 ml Balance 1570 ml GME ATTESTATION GME ATTESTATION My faculty preceptor for this patient encounter was physically present during the encounter and was fully available. All aspects of the patient interview, examination, medical decision making process, and medical care plan development were reviewed and approved by the faculty preceptor. The faculty preceptor is aware and concurs with the plan as stated in the body of this note and will attest to such by his/her cosignature. ATTENDING NOTE I, Zoe Lowry, have independently examined this patient and performed my own physical exam, as well as reviewed the documentation and edited where necessary. I have discussed in detail with the resident / student the findings and plan of treatment as documented by the resident / student and edited their note. I agree with their findings and treatment plan and have edited their documentation. I will continue to follow the patient during this hospital stay. Critical care time of 49 minutes DIANE IBARRA D.O. Apr 23, 2019 13:51 ZOE LOWRY MD Apr 23, 2019 16:08
[2019-04-23 14:05] LABS: HEMATOCRIT 27.1 % (42.0-52.0); HEMOGLOBIN 9.5 g/dl (13.5-17.5); MEAN CORPUSCULAR HEMOGLOBIN 30.9 pg (27.0-33.0); MEAN CORPUSCULAR HGB CONC 35.1 g/dl (32.0-36.5); MEAN CORPUSCULAR VOLUME 88.3 fl (80.0-96.0); RED BLOOD COUNT 3.07 10^6/uL (4.30-6.10); WHITE BLOOD COUNT 18.5 10^3/uL (4.0-10.0)
[2019-04-23 14:07] LABS: PLATELET COUNT, AUTOMATED 55 10^3/uL (150-450)
[2019-04-23 14:25] LABS: BLOOD UREA NITROGEN 24 MG/DL (7-18); CALCIUM LEVEL 7.4 MG/DL (8.8-10.2); CARBON DIOXIDE LEVEL 20 MEQ/L (21-32); CHLORIDE LEVEL 93 MEQ/L (98-107); CREATININE FOR GFR 1.01 MG/DL (0.70-1.30); GLOMERULAR FILTRATION RATE > 60.0 (>42); GLUCOSE, FASTING 227 MG/DL (70-100); MAGNESIUM LEVEL 1.9 MG/DL (1.8-2.4); POTASSIUM SERUM 4.4 MEQ/L (3.5-5.1); SODIUM LEVEL 124 MEQ/L (136-145)
[2019-04-23 14:31] LABS: ATYPICAL LYMPH 1 % (0-5); DOHLE BODIES 1+; LYMPHOCYTES 3 % (16-44); METAMYELOCYTES 1 % (0-0); MONOCYTES 4 % (0-5); NEUTROPHILS 76 % (28-66); PLATELET ESTIMATE DECREASED (NORMAL); TOXIC GRANULATION 1+; TOXIC VACUOLATION 1+
[2019-04-23 14:32] LABS: HYPOCHROMASIA 1+
[2019-04-23 14:38] LABS: ANISOCYTOSIS 1+; POIKILOCYTOSIS 1+
--- NOTE | 2019-04-23 16:52 | ECGEPIP ---
[facility] Test Date: 2019-04-22 Pat Name: GALLITO KIMBROUGH Department: Room: [place] [address] Gender: Male Normalizer: MIRIAM : 1945 Requested By: MAUREEN LOWRY Order Number: [id number] Reading MD: Armando Dang Measurements Intervals [place] Rate: 103 P: 77 SD: 196 QRS: 70 QRSD: 85 T: 53 QT: 348 QTc: 457 Interpretive Statements SINUS TACHYCARDIA ABNORMAL RHYTHM ECG Electronically Signed on 04-23-2019 16:52:12 EST by Armando Dang
--- NOTE | 2019-04-23 17:15 | REP ---
CT PELVIS WITHOUT IV CONTRAST: Sagittal and coronal reconstruction images are performed. There are degenerative changes of the lower lumbar spine with mild joint space narrowing at all levels. There is a vacuum phenomenon at L3-4. There is sclerosis and spurring at the posterior facet joints. There appears to have been a laminectomy at the L5 level previously. There is a total left hip prosthesis in good position with no adjacent osseous abnormality. There is severe arthritic change at the right hip joint, with severe joint space narrowing, subchondral sclerosis and cystic change. There is mild spurring of the right femoral head and acetabulum. Articular surface of the femoral head is mildly flattened and irregular. The appearance suggests underlying avascular necrosis of the right femoral head. I see no acute fracture. I see no adenopathy in the pelvis. There is mild free fluid in the pelvis. There is sigmoid diverticulosis noted. There is a Reeves catheter in a collapsed urinary bladder. IMPRESSION: No acute fracture or dislocation. Degenerative changes of lower lumbar spine. Total left hip prosthesis in good position. 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 There is mild free fluid in the pelvis. Electronically Signed by Geoffrey Camacho MD 04/23/2019 05:42 P
[2019-04-23] MEDS ORDERED: GASTROGRAFIN SOLUTION 30ML (Q9963) As Ordered ONE (17:31)
[2019-04-23 18:32] LABS: BLOOD UREA NITROGEN 24 MG/DL (7-18); CALCIUM LEVEL 7.2 MG/DL (8.8-10.2); CARBON DIOXIDE LEVEL 23 MEQ/L (21-32); CHLORIDE LEVEL 93 MEQ/L (98-107); CREATININE FOR GFR 0.83 MG/DL (0.70-1.30); GLOMERULAR FILTRATION RATE > 60.0 (>42); GLUCOSE, FASTING 160 MG/DL (70-100); POTASSIUM SERUM 4.2 MEQ/L (3.5-5.1); SODIUM LEVEL 125 MEQ/L (136-145)
[2019-04-23] MEDS ORDERED: ISOVUE-370 76% 100ML VIAL (Q9967) As Ordered ONE (19:20)
--- NOTE | 2019-04-23 20:13 | REPVR ---
PROCEDURE INFORMATION: Exam: CT Abdomen And Pelvis With Contrast Exam date and time: 04/23/2019 7:22 PM Age: 73 years old Clinical indication: Condition or disease; Other: Staph aureus sepsis TECHNIQUE: Imaging protocol: Computed tomography of the abdomen and pelvis with intravenous contrast. Radiation optimization: All CT scans at this facility use at least one of these dose optimization techniques: automated exposure control; mA and/or kV adjustment per patient size (includes targeted exams where dose is matched to clinical indication); or iterative reconstruction. Contrast material: ISOVUE 370; Contrast volume: 100 ml; Contrast route: IV; Other contrast: Oral, gastrografin; COMPARISON: CT Pelvis without contrast 04/23/2019 3:47 PM FINDINGS: Liver: Examination of the liver demonstrates a lobular surface contour, and enlargement of the left and caudate lobes, findings consistent with cirrhosis. Hepatic steatosis. Gallbladder and bile ducts: Normal. No calcified stones. No ductal dilation. Pancreas: There is diffuse pancreatic atrophy. Peripancreatic lymphadenopathy measures up to 10 mm. Spleen: The spleen demonstrates punctate calcifications, consistent with remote granulomatous organism exposure. Adrenals: Normal. No mass. Kidneys and ureters: Small simple right renal cyst measures 10 mm. Stomach and bowel: Mild diverticulosis is present in the distal colon. No diverticulitis. Appendix: No evidence of appendicitis. Intraperitoneal space: There is a small amount of free intraperitoneal fluid present. Vasculature: The aorta demonstrates moderate atherosclerotic calcification. Calcification demonstrated in the common femoral artery on the right resulting in a high-grade stenosis, possibly occlusive. Numerous portosystemic collaterals demonstrated involving the paraumbilical veins, splenorenal and possibly perirectal regions. Lymph nodes: Unremarkable. No enlarged lymph nodes. Bladder: Thick-walled urinary bladder contains air within the bladder likely iatrogenic secondary to the presence of a Reeves catheter. Clinical correlation to exclude cystitis suggested. Reproductive: Unremarkable as visualized. Bones/joints: Status post total hip replacement on the left. Soft tissues: There is soft tissue edema demonstrated in the abdominal wall, flanks and buttock regions consistent with anasarca. IMPRESSION: 1. Anasarca. 2. Examination of the liver demonstrates a lobular surface contour, and enlargement of the left and caudate lobes, findings consistent with cirrhosis. Hepatic steatosis. 3. There is diffuse pancreatic atrophy. 4. There is a small amount of free intraperitoneal fluid present. 5. Mild diverticulosis is present in the distal colon. No diverticulitis. 6. Thick-walled urinary bladder contains air within the bladder likely iatrogenic secondary to the presence of a Reeves catheter. Clinical correlation to exclude cystitis suggested. 7. Calcification demonstrated in the common femoral artery on the right resulting in a high-grade stenosis, possibly occlusive. 8. Small simple right renal cyst. COMMENTS: Consistent with the [employer]'s Incidental Findings Committee white paper (J Am Reid Radiol 2018): Any incidental cystic renal lesion classified in this report as too small to characterize or simple appearing is likely a benign cyst. No follow-up imaging is recommended for these lesions per consensus recommendations based on imaging criteria. Electronically signed by: Maxim Hsu On 04/23/2019 20:13:26 PM
[2019-04-23] MEDS: lisinopriL 10 MG TAB PO SCH (20:33)
--- NOTE | 2019-04-23 22:19 | ECHO ---
DATE OF PROCEDURE: 04/23/2019 Date of : 1945 Age: 73 REFERRING PHYSICIAN: Dr. Yen Desir PATIENT LOCATION: Room 3208 REASON FOR ECHOCARDIOGRAM: Shortness of breath. 2D MEASUREMENTS: IVS: 0.9 cm LV: 4.9 cm LVPW: 0.9 cm LA: 4.1 cm Aorta: 2.8 cm RV: 3.4 cm IVC: 2.1 cm DOPPLER MEASUREMENTS: Peak velocity across the aortic valve: 1.6 m/s Peak velocity across the LVOT: 1.1 m/s Peak gradient across the aortic valve: 10 mmHg Mean gradient across the aortic valve: 5 mmHg Mitral E: 1.4, Mitral A: 1.2 with a ratio of 1.1 2D COMMENTS: 1. Normal left ventricular size, wall thickness, and normal global left ventricular systolic function. The estimated left ventricular systolic ejection fraction is 60-65%. 2. Mildly enlarged left atrium. Normal right atrium and right ventricle. 3. The atrial septum appeared to be normal without evidence of defect or shunt. 4. Normal aortic root. 5. Trace pericardial effusion noted, no evidence of cardiac tamponade. 6. Mildly calcified aortic valve with normal leaflet excursion. Mildly calcified mitral annulus with normal anterior mitral valve leaflet motion. Normal tricuspid valve. The pulmonic valve and proximal pulmonary artery branches were not well visualized. 7. The inferior vena cava was dilated, central venous pressure might be elevated. DOPPLER: Doppler detects mild mitral regurgitation, trace tricuspid regurgitation. IMPRESSION 1. Normal global left ventricular systolic and diastolic function. 2. Aortic valve sclerosis with trivial aortic stenosis but no aortic regurgitation. 3. Mitral annulus calcification with mildly enlarged left atrium and mild mitral regurgitation. 4. Trace pericardial effusion. 5. The inferior vena cava was mildly enlarged, central venous pressure might be elevated. MTDD
--- NOTE | 2019-04-23 22:42 | CR ---
DATE OF CONSULTATION: 04/23/2019 REFERRING PHYSICIAN: Dr. Garza / Dr. Desir, Hospitalist REASON FOR CONSULTATION: Evaluation of staphylococcus aureus bacteremia. HISTORY OF PRESENT ILLNESS: Mr. Denise is a 73-year-old gentleman with a history of chronic obstructive pulmonary disease (COPD), congestive heart failure and liver cirrhosis who presented complaining of increasing shortness of breath of one day duration associated with fever and shaking chills. The patient has a chronic cough which has been worsening, complained of some runny nose. He also was complaining of increasing right hip pain 10/10. He states he is not able to stand on the right side. He had documented a temperature of 100.3 in the ER. He denied any muscle aches, weight loss. The patient had some dry heaves, but no vomiting and no diarrhea. No abdominal pain. He has a history of prostate issues and stated he had some dysuria that had started sometime in December when he was hospitalized at the [facility]. He was there for about a month. He was also hospitalized in February. I tried to access [facility] for the records and was not able to obtain them. 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 PAST MEDICAL HISTORY: Significant for COPD on nebs four times a day. Sleep apnea. He has a BiPap mask which he could not tolerate and therefore does not use. Hypertension. Peripheral vascular disease, status post stenting of the left leg. Non insulin-dependent diabetes with neuropathy. Not on insulin. Liver cirrhosis. He states that they told him it was alcoholic, but he states he did not drink that heavily. History of gout. PAST SURGICAL HISTORY Status post right total knee replacement. Left knee surgery. Left total hip replacement in 2018. Lumbar fusion. SOCIAL HISTORY: He quit smoking and drinking. FAMILY HISTORY: Significant for diabetes. ALLERGIES: ASPIRIN. MEDICATIONS - Furosemide 80 mg IV every 6 hours - vancomycin 1 gram IV every 12 hours - ceftriaxone 1 gram IV every 24. Today is day #1. - He received one dose of Zosyn yesterday on 04/22 - albuterol 1.25 every 2 as needed (p.r.n.) - insulin sliding scale - Cepacol lozenges as needed - albuterol/Atrovent nebs every 4 - pantoprazole 40 mg by mouth daily - allopurinol 100 mg by mouth daily - duloxetine 30 mg by mouth daily - finasteride 5 mg by mouth daily - loratadine 10 mg by mouth daily - MiraLax 1 packet by mouth daily - spironolactone 50 mg by mouth daily - Spiriva 1 inhalation daily - fluticasone 2 sprays daily as needed - docusate 100 mg by mouth twice a day - lisinopril 10 mg by mouth at bedtime LABORATORY DATA White count on admission was 12.3, 04/22 it was 8.8. Today was 18.5. Hemoglobin 9.5, hematocrit 27.1, platelets 55, 76% neutrophils, 15% bands, 3% lymphocytes, 4% monocytes. Sodium 124, potassium 4.4, chloride 93, bicarb 20, BUN 24, creatinine 1, glucose 227, lactic acid 5.9, which has increased from yesterday of 2.8, BNP 929, albumin 1.9. Influenza A and B was negative. Urinalysis had +2 leukocyte esterase, 42 white cells. 04/21 two sets of blood cultures were positive for staph aureus drawn 20 hours apart on 04/22. Two more sets of blood cultures are positive for staph aureus. Respiratory panel is negative. Urine culture is pending. IMAGING: Chest x-ray showed no acute disease. CT angiogram showed no evidence of pulmonary embolism and no acute infiltrates. No pericardial effusions. Liver consistent with cirrhosis and moderate degree of intra-abdominal ascites, hydropic gallbladder. Abdominal ultrasound was limited for ascites which was minimal and therefore paracentesis was not performed. PHYSICAL EXAMINATION: He is a sick looking gentleman sitting in a chair in mild respiratory discomfort. Temperature is 97.8, pulse 110, respirations 28, blood pressure 113/53, O2 sat 98-99% on room air. Heart: Normal S1, S2. Tachycardic. Distant. Lungs: Decreased breath sounds bilaterally with few exterior wheezes, diminished at bases. Abdomen: Distended, soft, nontender. No hepatosplenomegaly. Extremities: Trace ankle edema bilaterally. No clubbing, cyanosis, no calf tenderness. No lesions, petechiae or suggestive of endocarditis. Right total knee replacement with normal range of motion. Musculoskeletal examination: Right total knee replacement with normal range of motion. Left knee surgical scar medially, well healed. Right hip pain with flexion, although there is some pitting edema at the hip area bilaterally. There is no redness. Lumbar spine: Healed scar of lumbar fusion with mild lumbosacral tenderness. REVIEW OF SYSTEMS The patient had one episode of nausea but this has resolved. No vomiting or diarrhea. No abdominal pain. He has dysuria and frequency. He has problems with his prostate that has been evaluated by urology. He also complains of hoarseness; had an ENT appointment to be seen at the [facility] on Friday, but this will be cancelled. He denies any sore throat. No headache or neck stiffness. No upper or lower extremity weakness. He complains of significant right hip pain. IMPRESSION This is a 73-year-old gentleman with a history of COPD, congestive heart failure, MRSA carrier who presented with 24 hours of the fever, shaking chills and was found to have bacteremia for the past 48 hours. He has received Zosyn and ceftriaxone along with vancomycin. This is most likely MRSA sepsis. His lactic acidosis has remained elevated. Possible foci of infection would be endocarditis versus right hip infection/psoas infection. The patient complains of right- sided hip pain. He has prosthesis in his right knee and left hip, but these seem to not be involved currently with the infection. PLAN Discontinue IV Rocephin. There is no need for double coverage. This is very likely MRSA bacteremia he is known MRSA carrier. Continue with IV vancomycin 1 gram every 12 hours. Repeat blood cultures two sets tomorrow to document clearance of bacteremia and make sure we have negative cultures documented. Add ESR, CRP. Will obtain CT abdomen and pelvis to rule out a pelvic abscess or hip abscess, psoas abscess with contrast. Transthoracic echocardiogram was done today, the results of which are still pending. If they are negative the patient will need a transesophageal echocardiogram next week. [facility]
[2019-04-24] VITALS (24 sets, daily range): BP systolic 128–152; BP diastolic 65–78; O2SAT 73–100
[2019-04-24] MEDS: IPRATROPIUM 0.5MG/ALBUTEROL 2.5MG INH SOL UD 3ML (DUONEB)(J7620) NEB SCH ×6 (04:10→23:46)
[2019-04-24] MEDS: FUROSEMIDE 100 MG/10 ML VIAL (J1940) IV SCH ×4 (04:54→22:40)
[2019-04-24 05:30] LABS: HEMATOCRIT 27.2 % (42.0-52.0); HEMOGLOBIN 9.6 g/dl (13.5-17.5); MEAN CORPUSCULAR HEMOGLOBIN 30.4 pg (27.0-33.0); MEAN CORPUSCULAR HGB CONC 35.3 g/dl (32.0-36.5); MEAN CORPUSCULAR VOLUME 86.1 fl (80.0-96.0); RED BLOOD COUNT 3.16 10^6/uL (4.30-6.10); WHITE BLOOD COUNT 16.3 10^3/uL (4.0-10.0)
[2019-04-24 05:34] LABS: PLATELET COUNT, AUTOMATED 53 10^3/uL (150-450)
[2019-04-24 05:49] LABS: LYMPHOCYTES 6 % (16-44); MONOCYTES 5 % (0-5); NEUTROPHILS 89 % (28-66)
[2019-04-24 05:50] LABS: ANISOCYTOSIS 1+; HYPOCHROMASIA 1+; PLATELET ESTIMATE MARKED DECREASE (NORMAL)
[2019-04-24 05:56] LABS: BLOOD UREA NITROGEN 26 MG/DL (7-18); C REACTIVE PROTEIN QUANTITATIV 7.93 MG/DL (0.00-0.30); CALCIUM LEVEL 7.4 MG/DL (8.8-10.2); CARBON DIOXIDE LEVEL 25 MEQ/L (21-32); CHLORIDE LEVEL 90 MEQ/L (98-107); CREATININE FOR GFR 0.67 MG/DL (0.70-1.30); GLOMERULAR FILTRATION RATE > 60.0 (>42); GLUCOSE, FASTING 172 MG/DL (70-100); MAGNESIUM LEVEL 1.6 MG/DL (1.8-2.4); SODIUM LEVEL 123 MEQ/L (136-145)
[2019-04-24 06:17] LABS: ERYTHROCYTE SEDIMENTATION RATE 51 mm/hr (0-20)
[2019-04-24] MEDS: TIOTROPIUM INHALER/CAPSULE (SPIRIVA) INH SCH (07:13)
[2019-04-24] MEDS: HumaLOG INSULIN (NovoLOG) PER UNIT SC SCH ×4 (08:12→20:41)
[2019-04-24] MEDS: allopurinoL 100 MG TAB PO SCH (08:13)
[2019-04-24] MEDS: ASPIRIN 81 MG ENTERIC TAB PO SCH (08:13)
[2019-04-24] MEDS: LORATADINE 10 MG TAB PO SCH (08:13)
[2019-04-24] MEDS: DULoxetine 30 MG CAP (CYMBALTA) PO SCH (08:13)
[2019-04-24] MEDS: PANTOPRAZOLE 40MG TAB (PROTONIX) PO SCH (08:13)
[2019-04-24] MEDS: FINASTERIDE 5 MG TAB PO SCH (08:13)
[2019-04-24] MEDS: DOCUSATE SODIUM 100 MG CAP PO SCH ×2 (08:13→20:41)
[2019-04-24] MEDS: SPIRONOLACTONE 50 MG TAB PO SCH (08:13)
[2019-04-24] MEDS: MIRALAX *UNIT DOSE* 17GM PACKET PO SCH (08:14)
[2019-04-24] MEDS: VANCOMYCIN HCL 1,000 MG, VIAL MATE ADAPTER 1 EACH in D5W 250 ML IV SCH ×2 (08:17→20:42)
[2019-04-24] MEDS ORDERED: ONDANSETRON 4MG/2ML VIAL (J2405) IV PRN (12:45)
[2019-04-24] MEDS ORDERED: MAGNESIUM OXIDE 400 MG TAB (MAG-OX) PO ONE (13:00)
[2019-04-24] MEDS: CEPACOL LOZENGE PO PRN (13:03)
--- NOTE | 2019-04-24 13:40 | IPN ---
DATE: 04/24/2019 Roshan is seen in PCU. He has a COPD exacerbation and has had Staphylococcus Aureus, looks like methicillin-sensitive Staphylococcus. Isolated on two different sets of blood cultures. A third set has been drawn and is pending. He is on vancomycin for this. He has been seen by infectious disease. He has hyponatremia which was present on admission, but has gotten worse since he has been diuresed. Overall he feels well. He is chronically short of breath, doesn't feel it is any worse today. His oxygen saturations are satisfactory. PHYSICAL EXAMINATION: Blood pressure 130/68, afebrile, 98% oxygen saturation. He is resting comfortably, sitting up in the chair. HEENT unremarkable. Lungs decreased breath sounds, but clear. Heart regular rhythm, no murmur. Abdomen soft, nontender, no masses. No peripheral edema. Echocardiogram yesterday showed ejection fraction of 60-65%. Mild mitral regurgitation, trivial aortic stenosis. No vegetations. CT of abdomen and pelvis did not show any abscess. IMPRESSION: 1. Staphylococcus bacteremia. It looks to be methicillin-sensitive Staphylococcus, waiting for final determinations on this. He is on vancomycin which will be continued. 2. Congestive heart failure (CHF) on IV furosemide as well as spironolactone. He had good diuresis yesterday of 1700 mL. He got 5.3 liters over his first 24 hours, so he is still 4 liters positive. Continue his diuresis. 3. Hyponatremia. Suspect this is secondary to his diuresis. He is on duloxetine which could contribute. His sodium was low on admission, but it has gotten worse since he has been diuresed. Followup labs have been ordered. 4. Hypomagnesemia. Followup magnesium has been ordered. 5. Hypertension. Blood pressure is well controlled. 6. Gout. Continue allopurinol. He is at risk of a flare of this with the diuresis. 7. Benign prostatic hypertrophy (BPH). He is on finasteride. There is no sign of any urinary retention. 8. Cirrhosis. He has some mild ascites, nothing dramatic.
[2019-04-24] MEDS ORDERED: guaiFENesin ER 600 MG TAB PO PRN (18:00)
[2019-04-24] MEDS: MAGNESIUM OXIDE 400 MG TAB (MAG-OX) PO SCH (20:41)
[2019-04-24] MEDS: lisinopriL 10 MG TAB PO SCH (20:41)
[2019-04-24] MEDS: guaiFENesin ER 600 MG TAB PO PRN (20:47)
[2019-04-25] VITALS (21 sets, daily range): BP systolic 140–158; BP diastolic 63–78; O2SAT 91–99
[2019-04-25] MEDS: IPRATROPIUM 0.5MG/ALBUTEROL 2.5MG INH SOL UD 3ML (DUONEB)(J7620) NEB SCH ×5 (03:15→20:32)
[2019-04-25 04:47] LABS: HEMATOCRIT 27.9 % (42.0-52.0); HEMOGLOBIN 9.7 g/dl (13.5-17.5); MEAN CORPUSCULAR HEMOGLOBIN 29.9 pg (27.0-33.0); MEAN CORPUSCULAR HGB CONC 34.8 g/dl (32.0-36.5); MEAN CORPUSCULAR VOLUME 86.1 fl (80.0-96.0); RED BLOOD COUNT 3.24 10^6/uL (4.30-6.10); WHITE BLOOD COUNT 18.1 10^3/uL (4.0-10.0)
[2019-04-25 04:50] LABS: PLATELET COUNT, AUTOMATED 61 10^3/uL (150-450)
[2019-04-25] MEDS: FUROSEMIDE 100 MG/10 ML VIAL (J1940) IV SCH ×4 (04:57→21:49)
[2019-04-25 05:06] LABS: BLOOD UREA NITROGEN 25 MG/DL (7-18); CALCIUM LEVEL 8.3 MG/DL (8.8-10.2); CARBON DIOXIDE LEVEL 31 MEQ/L (21-32); CHLORIDE LEVEL 88 MEQ/L (98-107); GLOMERULAR FILTRATION RATE > 60.0 (>42); GLUCOSE, FASTING 156 MG/DL (70-100); MAGNESIUM LEVEL 1.5 MG/DL (1.8-2.4); POTASSIUM SERUM 4.1 MEQ/L (3.5-5.1); SODIUM LEVEL 125 MEQ/L (136-145)
[2019-04-25] MEDS: VANCOMYCIN HCL 1,000 MG, VIAL MATE ADAPTER 1 EACH in D5W 250 ML IV SCH (05:23)
[2019-04-25] MEDS: LIDOCAINE 5% (LIDODERM) PATCH TOP PRN (06:17)
[2019-04-25] MEDS: TIOTROPIUM INHALER/CAPSULE (SPIRIVA) INH SCH (07:27)
[2019-04-25] MEDS: FINASTERIDE 5 MG TAB PO SCH (08:11)
[2019-04-25] MEDS: ACETAMINOPHEN TAB 650MG DOSE (2X325MG) PO PRN ×2 (08:11→17:06)
[2019-04-25] MEDS: SPIRONOLACTONE 50 MG TAB PO SCH (08:11)
[2019-04-25] MEDS: DOCUSATE SODIUM 100 MG CAP PO SCH ×2 (08:12→21:50)
[2019-04-25] MEDS: LORATADINE 10 MG TAB PO SCH (08:12)
[2019-04-25] MEDS: allopurinoL 100 MG TAB PO SCH (08:12)
[2019-04-25] MEDS: PANTOPRAZOLE 40MG TAB (PROTONIX) PO SCH (08:12)
[2019-04-25] MEDS: DULoxetine 30 MG CAP (CYMBALTA) PO SCH (08:12)
[2019-04-25] MEDS: MIRALAX *UNIT DOSE* 17GM PACKET PO SCH (08:12)
[2019-04-25] MEDS: MAGNESIUM OXIDE 400 MG TAB (MAG-OX) PO SCH ×2 (08:12→21:50)
[2019-04-25] MEDS: ASPIRIN 81 MG ENTERIC TAB PO SCH (08:12)
[2019-04-25] MEDS: HumaLOG INSULIN (NovoLOG) PER UNIT SC SCH ×4 (08:13→21:50)
[2019-04-25] MEDS: methylPREDNISolone INJ 125 MG/2 ML VIAL (J2930) IV SCH ×2 (09:44→21:49)
[2019-04-25] MEDS: CEPACOL LOZENGE PO PRN ×2 (09:45→17:08)
--- NOTE | 2019-04-25 09:55 | REP ---
CT CHEST WITHOUT IV CONTRAST: CT chest performed without IV contrast. Sagittal and coronal reconstruction images are performed. Comparison made with prior study of 04/21/2019. New scattered patchy infiltrates are seen bilaterally, more so in the upper lobes. There are scattered subcentimeter mediastinal lymph nodes present. There is atherosclerotic calcification of the thoracic aorta without aneurysm. Heart is not enlarged. There is no pleural or pericardial effusion. There is mild perihepatic ascites. There are calcified granulomas of the spleen. Diffuse nodular contour of the liver again suggests cirrhosis. IMPRESSION: Several areas of new patchy infiltrates scattered bilaterally, more so in the upper lobes. Electronically Signed by Geoffrey Camacho MD 04/25/2019 06:29 P
[2019-04-25] MEDS ORDERED: MAG SULF 1GM/100ML (MAG RUN) 1 GM in IV 1 EA IV ONE (10:00)
[2019-04-25] MEDS: ceFAZolin SOD 2 GM in IV 1 EA IV SCH ×2 (12:05→18:25)
--- NOTE | 2019-04-25 15:47 | IPN ---
DATE: 04/25/2019 I was asked by Dr. Coppola to perform transesophageal echocardiogram on Mr. Denise. I examined the patient, obtained history. I talked to him about the nature of the procedure, its indication and potential complications. He did sign appropriate consent. I tentatively plan on proceeding either tomorrow or the day after tomorrow depending on his clinical condition. I do not believe there is any emergency. He had an echocardiogram that did not reveal any gross valvular heart disease and it would be better if his bacteremia is cleared before we proceed. I also believe that it hopefully will lead to some improvement in platelet count that will decrease the risk of complications during the procedure. MIGUEL A
[2019-04-25] MEDS: lisinopriL 10 MG TAB PO SCH (21:50)
[2019-04-25] MEDS: guaiFENesin ER 600 MG TAB PO PRN (21:58)
[2019-04-26] VITALS (19 sets, daily range): BP systolic 140–184; BP diastolic 63–72; O2SAT 91–96
[2019-04-26] MEDS: IPRATROPIUM 0.5MG/ALBUTEROL 2.5MG INH SOL UD 3ML (DUONEB)(J7620) NEB SCH ×6 (00:38→20:29)
[2019-04-26] MEDS ORDERED: FUROSEMIDE 100 MG/10 ML VIAL (J1940) IV ONE (01:45)
[2019-04-26] MEDS: RAMELTEON 8 MG TAB (ROZEREM) PO SCH ×2 (02:46→21:22)
[2019-04-26] MEDS: ceFAZolin SOD 2 GM in IV 1 EA IV SCH ×3 (02:47→18:00)
[2019-04-26 03:14] LABS: ABG BASE EXCESS 8.8 (-2.0-2.0); ABG HCO3 32.2 MEQ/L (22.0-26.0); ABG O2 SATURATION 97.4 % (95.0-99.0); ABG PARTIAL PRESSURE CO2 39.9 mmHg (35.0-45.0); ABG PARTIAL PRESSURE O2 84.1 mmHg (75.0-100.0); ABG STANDARD HCO3 32.5 MEQ/L (22.0-26.0); ABG TOTAL CO2 33.4 MEQ/L (23.0-31.0); ABG pH (ARTERIAL) 7.525 UNITS (7.350-7.450)
[2019-04-26] MEDS: FUROSEMIDE 100 MG/10 ML VIAL (J1940) IV SCH ×4 (04:37→21:23)
[2019-04-26 05:37] LABS: HEMATOCRIT 28.4 % (42.0-52.0); HEMOGLOBIN 9.8 g/dl (13.5-17.5); MEAN CORPUSCULAR HEMOGLOBIN 29.3 pg (27.0-33.0); MEAN CORPUSCULAR HGB CONC 34.5 g/dl (32.0-36.5); RED BLOOD COUNT 3.34 10^6/uL (4.30-6.10); WHITE BLOOD COUNT 10.7 10^3/uL (4.0-10.0)
[2019-04-26 05:39] LABS: PLATELET COUNT, AUTOMATED 60 10^3/uL (150-450)
[2019-04-26 05:54] LABS: BLOOD UREA NITROGEN 20 MG/DL (7-18); CALCIUM LEVEL 7.7 MG/DL (8.8-10.2); CARBON DIOXIDE LEVEL 33 MEQ/L (21-32); CHLORIDE LEVEL 87 MEQ/L (98-107); CREATININE FOR GFR 0.79 MG/DL (0.70-1.30); GLOMERULAR FILTRATION RATE > 60.0 (>42); GLUCOSE, FASTING 263 MG/DL (70-100); MAGNESIUM LEVEL 1.6 MG/DL (1.8-2.4); SODIUM LEVEL 127 MEQ/L (136-145)
[2019-04-26 08:49] LABS: C REACTIVE PROTEIN QUANTITATIV 5.17 MG/DL (0.00-0.30)
[2019-04-26] MEDS: TIOTROPIUM INHALER/CAPSULE (SPIRIVA) INH SCH (08:52)
[2019-04-26] MEDS: MIRALAX *UNIT DOSE* 17GM PACKET PO SCH (09:00)
[2019-04-26] MEDS: FINASTERIDE 5 MG TAB PO SCH (09:04)
[2019-04-26] MEDS: SPIRONOLACTONE 50 MG TAB PO SCH (09:04)
[2019-04-26] MEDS: PANTOPRAZOLE 40MG TAB (PROTONIX) PO SCH (09:05)
[2019-04-26] MEDS: ASPIRIN 81 MG ENTERIC TAB PO SCH (09:05)
[2019-04-26] MEDS: DULoxetine 30 MG CAP (CYMBALTA) PO SCH (09:05)
[2019-04-26] MEDS: MAGNESIUM OXIDE 400 MG TAB (MAG-OX) PO SCH ×2 (09:05→21:22)
[2019-04-26] MEDS: DOCUSATE SODIUM 100 MG CAP PO SCH ×2 (09:05→21:22)
[2019-04-26] MEDS: LORATADINE 10 MG TAB PO SCH (09:05)
[2019-04-26] MEDS: allopurinoL 100 MG TAB PO SCH (09:05)
[2019-04-26] MEDS: HumaLOG INSULIN (NovoLOG) PER UNIT SC SCH ×4 (09:06→21:22)
[2019-04-26] MEDS: methylPREDNISolone INJ 125 MG/2 ML VIAL (J2930) IV SCH ×2 (09:06→21:23)
--- NOTE | 2019-04-26 09:17 | IPN ---
DATE: 04/26/2019 Roshan is see in progressive care unit (PCU). Overnight, he had some dyspnea and anxiety. He was given Rozerem and a dose of Lasix. He feels better. Less short of breath. Communicated with Dr. Mason yesterday. She changed antibiotics. Repeat blood cultures are pending. The case was discussed with Dr. Cormier who plans transesophageal echocardiogram probably tomorrow. Clinically, the patient feels better. Says he had a rough night, but less short of breath today. PHYSICAL EXAMINATION: 161/71. T-max 98.5. Oxygen saturation 93% on room air. General Appearance: He is anxious, resting without obvious dyspnea. HEENT: Unremarkable. Lungs: Expiratory wheezes all portillo. Scattered rhonchi. Heart: Regular rhythm. 1/6 systolic ejection murmur, which is unchanged. Abdomen: Soft. Nontender. No masses. No peripheral edema. LABS: White count down to 10.7, hemoglobin 9.8, platelets 60. White count 127. BUN 20. Creatinine 0.7. Blood sugar 260. IMPRESSION: 1. Bacteremia with methicillin-sensitive Staphylococcus. He is currently on Cefazolin 2 grams IV every 8 hours. This was started yesterday. Infectious disease is consulted. Transesophageal echo is planned. 2. Pneumonia. Yesterday, his CT of chest showed several areas of new patchy infiltrates scattered bilaterally, more so in the upper lobes, new compared to 04/21/2019. Antibiotics were changed. I suspect this is related to a Staphylococcus bacteremia. There is no cavitations of these. 3. Hyponatremia. He is slowly coming out of this. I suspect syndrome of inappropriate antidiuretic hormone secretion (SIADH) due to the pulmonary process. 4. Diastolic congestive heart failure. He is maintaining a good diuresis. He has diuresed over 7 liters over the last three days and clinically has responded well to this. Potassium level is okay and his sodium is actually improving as he diureses. 5. History of gout. He is on allopurinol with no flare while being diuresed. 6. Hypertension. Blood pressure is well controlled. 7. Benign prostatic hypertrophy (BPH). He is on finasteride with no sign of urinary retention. 8. Cirrhosis with anemia and thrombocytopenia. These values are stable. He had scant ascites on his recent imaging. There is no evidence of spontaneous bacterial peritonitis.
[2019-04-26] MEDS: CEPACOL LOZENGE PO PRN ×2 (12:05→17:59)
[2019-04-26] MEDS: ACETAMINOPHEN TAB 650MG DOSE (2X325MG) PO PRN ×2 (12:05→16:24)
--- NOTE | 2019-04-26 13:00 | IPN ---
DATE: 04/25/2019 Adonay was seen while rounding for the hospitalist. He has methicillin Staphylococcus aureus bacteremia isolated off blood cultures drawn on three separate days. He is currently on vancomycin. Clinically, he feels short breath. He is more wheezy today. He had some bloody tinged sputum yesterday. He is not febrile, but his leukocytosis is increasing, I think clinically he is not making progress. PHYSICAL EXAMINATION: VITAL SIGNS: Afebrile. 153/78, oxygen saturation 98% on 2 liters. GENERAL APPEARANCE: He looks comfortable at rest but complains of dyspnea. HEENT: Unremarkable. LUNGS: Expiratory wheezes at the bases. HEART: Regular rate and rhythm. 1/6 systolic ejection murmur, unchanged from previous examination. ABDOMEN: Soft, nontender, nondistended. No masses. EXTREMITIES: No peripheral edema. LABORATORIES: Sodium is up to 125, potassium 4.1, BUN 25, creatinine 0.7, glucose 156, white count 18,000, hemoglobin 9.7, platelets are down to 61. IMPRESSION: 1. Methicillin Staphylococcus aureus bacteremia. Continue with vancomycin. Transesophageal echo is requested from cardiology. Case discussed with Dr. Cormier. Dr. Mason is involved in the case and I have communication out to her as well. Continue the vancomycin for now. 2. Shortness of breath. Getting a stat CT of the chest. Continue nebulized bronchodilator. He is not currently on steroids. I think that he needs a dose with the increasing wheezing. 3. Hypomagnesemia. IV magnesium has been ordered. 4. Congestive heart failure (CHF). He is on IV furosemide. He had a 2.5 liter net diuresis yesterday. Continue diuresing until renal function declines. 5. History of cirrhosis. He is thrombocytopenic from this.
[2019-04-26] MEDS: LIDOCAINE 5% (LIDODERM) PATCH TOP PRN (16:23)
[2019-04-26] MEDS: guaiFENesin ER 600 MG TAB PO PRN (16:23)
[2019-04-26] MEDS: lisinopriL 10 MG TAB PO SCH (21:22)
[2019-04-27] VITALS (24 sets, daily range): BP systolic 124–160; BP diastolic 62–72; O2SAT 90–100
[2019-04-27] MEDS: IPRATROPIUM 0.5MG/ALBUTEROL 2.5MG INH SOL UD 3ML (DUONEB)(J7620) NEB SCH ×7 (00:22→22:58)
[2019-04-27] MEDS: ceFAZolin SOD 2 GM in IV 1 EA IV SCH ×3 (01:45→18:50)
[2019-04-27] MEDS: ACETAMINOPHEN TAB 650MG DOSE (2X325MG) PO PRN ×2 (01:46→13:15)
[2019-04-27] MEDS: CEPACOL LOZENGE PO PRN ×3 (01:50→22:58)
[2019-04-27] MEDS: guaiFENesin ER 600 MG TAB PO PRN ×2 (01:51→22:59)
[2019-04-27] MEDS: FUROSEMIDE 100 MG/10 ML VIAL (J1940) IV SCH ×4 (03:40→22:59)
[2019-04-27 06:33] LABS: HEMATOCRIT 26.2 % (42.0-52.0); HEMOGLOBIN 9.2 g/dl (13.5-17.5); MEAN CORPUSCULAR HEMOGLOBIN 29.9 pg (27.0-33.0); MEAN CORPUSCULAR HGB CONC 35.1 g/dl (32.0-36.5); MEAN CORPUSCULAR VOLUME 85.1 fl (80.0-96.0); RED BLOOD COUNT 3.08 10^6/uL (4.30-6.10); WHITE BLOOD COUNT 10.5 10^3/uL (4.0-10.0)
[2019-04-27 06:34] LABS: PLATELET COUNT, AUTOMATED 63 10^3/uL (150-450)
[2019-04-27] MEDS: TIOTROPIUM INHALER/CAPSULE (SPIRIVA) INH SCH (07:04)
[2019-04-27 07:06] LABS: BLOOD UREA NITROGEN 26 MG/DL (7-18); C REACTIVE PROTEIN QUANTITATIV 3.26 MG/DL (0.00-0.30); CALCIUM LEVEL 7.8 MG/DL (8.8-10.2); CARBON DIOXIDE LEVEL 35 MEQ/L (21-32); CHLORIDE LEVEL 86 MEQ/L (98-107); CREATININE FOR GFR 0.76 MG/DL (0.70-1.30); GLOMERULAR FILTRATION RATE > 60.0 (>42); GLUCOSE, FASTING 390 MG/DL (70-100); MAGNESIUM LEVEL 1.6 MG/DL (1.8-2.4); NT-PRO BNP 278 PG/ML (<125); POTASSIUM SERUM 3.8 MEQ/L (3.5-5.1); SODIUM LEVEL 127 MEQ/L (136-145)
[2019-04-27] MEDS: PANTOPRAZOLE 40MG TAB (PROTONIX) PO SCH (08:16)
[2019-04-27] MEDS: HumaLOG INSULIN (NovoLOG) PER UNIT SC SCH ×4 (08:16→21:00)
[2019-04-27] MEDS: LORATADINE 10 MG TAB PO SCH (08:16)
[2019-04-27] MEDS: DOCUSATE SODIUM 100 MG CAP PO SCH ×2 (08:16→21:29)
[2019-04-27] MEDS: DULoxetine 30 MG CAP (CYMBALTA) PO SCH (08:16)
[2019-04-27] MEDS: SPIRONOLACTONE 50 MG TAB PO SCH (08:17)
[2019-04-27] MEDS: allopurinoL 100 MG TAB PO SCH (08:17)
[2019-04-27] MEDS: FINASTERIDE 5 MG TAB PO SCH (08:17)
[2019-04-27] MEDS: ASPIRIN 81 MG ENTERIC TAB PO SCH (08:17)
[2019-04-27] MEDS: MAGNESIUM OXIDE 400 MG TAB (MAG-OX) PO SCH ×2 (08:17→21:29)
--- NOTE | 2019-04-27 09:31 | IPN ---
DATE OF SERVICE: 04/26/2019 The patient was seen this afternoon. He was complaining of feeling a little better. He did have increasing wheezing and some shortness of breath. His cough is productive of slight blood-tinged sputum. He is afebrile. He has no nausea, vomiting, or diarrhea. The patient is on intravenous (IV) cefazolin, tolerating well. No nausea, vomiting, or diarrhea. On physical examination, temperature is 98.3, pulse 111, respirations 20, blood pressure 184/71, oxygen (O2) saturation 97% on room air. He has been afebrile except for his admission fever. Heart: Normal S1, S2, tachycardic. Systolic ejection murmur 1/6. Lungs: Few exterior wheezes bilaterally. Abdomen: Obese, soft, nontender. Extremities: +1 ankle edema bilaterally. Back: No costovertebral angle (CVA) or lumbosacral tenderness. Right hip range of motion slightly painful, but the patient is able to hip flex. LABORATORIES: White count is 10.1 down from 18, hemoglobin 9.8, hematocrit 28.4, platelets 60. Sodium 127, potassium 4, chloride 87, bicarbonate 33, BUN 20, creatinine 0.79, glucose 263, calcium 7.6, magnesium 1.6, CRP 5.17 down from 7.93. Blood cultures positive for methicillin-susceptible Staphylococcus aureus (MSSA) on 04/21/2019 two sets, 04/22/2019 two sets, and 04/24/2019. So, 3 consecutive days. The first blood culture that was negative is on 04/25/2019, and a blood culture from 04/26/2019 is pending. Urine culture was also positive for MSSA. IMPRESSION: 1. Staphylococcus aureus bacteremia very high suspicion for endocarditis as the patient has had bacteremia for 3 consecutive days. 2. Dysuria with a urine culture positive for MSSA. The patient has had chronic urinary symptoms for over 3 months and has been diagnosed with benign prostatic hypertrophy (BPH), [facility]. I suspect his MSSA bacteruria is related to his bacteremia, not as the main source of infections. 3. Shortness of breath. Chest CT done on 04/25/2019 showed new scattered patchy infiltrates bilaterally in upper lobe with scattered subcentimeter mediastinal lymph nodes present. Patchy infiltrates could be infectious in nature, if he has right-sided endocarditis, it could be related to septic emboli, although my suspicion that he would have a right-sided endocarditis is very low. It could also be fluid overload. Would obtain a brain natriuretic peptide (BNP). 4. History of alcoholic liver cirrhosis, stable, causing stable thrombocytopenia. PLAN: Continue IV cefazolin 2 grams every 8 hours. Obtain BNP and the patient is scheduled for transesophageal echocardiogram tomorrow to rulke out endocarditis PICC line when 2 sets of blood cultures are negative MTDD
--- NOTE | 2019-04-27 09:32 | IPN ---
DATE: 04/27/2019 I saw Mr. Denise a few minutes ago. There is tentative plan to perform transesophageal echocardiogram at 5 o'clock this afternoon. The patient tells me that he is feeling slightly better. He is not as short of breath, but still feels weak and tired. On physical exam his blood pressure is 160/72, heart rate has been in the 60s. He is afebrile. Saturation 94% on room air. His fluid balance was recorded negative 2700 yesterday. Weight is recorded 95.9 which is actually considerably less than the admission weight of 100.9. He is alert and oriented, appropriate. His jugular venous pulse (JVP) looks minimally elevated. Lungs are reasonably clear with only occasional wheeze, I do not appreciate any crackle. Heart exam reveals regular rhythm. There is murmur best heard toward the apex, I would say about 2/3 out of 6 in intensity, even though it is heard throughout the precordium. Abdomen is soft. I do not appreciate any distinct shifting dullness. There is minimal peripheral edema. He is edentulous and has easily visible uvula. LABORATORY DATA: Hemoglobin 9.2, hematocrit 26, platelet count 63 and WBC count 10.5 and basic metabolic panel sodium 127, BUN 6, creatinine 26, glucose 390, magnesium 1.6 and his N terminal pro-BNP was only 278. CRP is coming down at 32.6. Microbiology - the blood cultures from yesterday and the day before yesterday so far have been negative. His last positive culture for Staphylococcus aureus was March. I believe we can proceed with transesophageal echocardiogram this afternoon. His hemodynamic situation is more stable and his respiratory status has improved as well. I again talked to the patient about the procedure, I explained the rationale and potential findings and complications. I am worried about his low platelet count but it is stable and if anything slightly improving.
[2019-04-27] MEDS: methylPREDNISolone INJ 125 MG/2 ML VIAL (J2930) IV SCH (10:12)
--- NOTE | 2019-04-27 11:09 | IPN ---
DATE: 04/27/2019 Roshan is seen today in the progressive care unit (PCU). I met with his family his . We spent time answering all their questions. He is supposed to have a transesophageal echo today. He has methicillin-sensitive Staphylococcus bacteremia, currently on Ancef. He is short of breath today. It seems to be a combination of his heart failure and pneumonia and some element of anxiety as well. We have been diuresing him fairly aggressively, over 10 liters of net diuresis over the last five days without any change in his BUN/creatinine ratio. His BNP has fallen with diuresis. PHYSICAL EXAMINATION: 160/72. Pulse 113. Respiratory rate 18. 94% oxygen saturation on room air. General Appearance: He is anxious. Lungs: Have expiratory wheezes. Heart: Regular rhythm. Tachycardiac. Abdomen: Soft. Nontender. Trace peripheral edema. LABS: White count 10.5, hemoglobin 9.2, platelets 63, sodium 127, potassium 3.8, BUN 26, creatinine 0.7, glucose 90. BNP is 378. Blood sugars have been in the 400 range. IMPRESSION: 1. Methicillin-sensitive Staphylococcus aureus bacteremia. He is on Ancef 2 grams IV every 8 hours. Transesophageal echocardiogram pending. Dr. Mason is following him from infectious disease (ID). 2. Diabetes. Detemir insulin, sliding scale. 3. Bilateral pneumonia, suspect staphylococcus. Continue Ancef. 3. Diastolic congestive heart failure. He is having a good diuresis. I am going to continue diuresing him until his BUN/creatinine bump.
[2019-04-27] MEDS ORDERED: LIDOCAINE VISCOUS 2% SOLN 15ML UDC As Ordered ONE (17:05)
[2019-04-27] MEDS ORDERED: CETACAINE SPRAY 5GM As Ordered ONE (17:05)
[2019-04-27] MEDS ORDERED: propofoL 200 MG/20 ML VIAL As Ordered ONE (17:12)
[2019-04-27] MEDS ORDERED: LIDOCAINE 2% INJ 100 MG/5 ML SDV (FOR ANES.) As Ordered ONE (17:12)
[2019-04-27] MEDS ORDERED: LR 1,000 ML IV SCH (18:00)
[2019-04-27] MEDS ORDERED: ONDANSETRON 4MG/2ML VIAL (J2405) IV PRN (18:00)
--- NOTE | 2019-04-27 19:30 | T-ECHO ---
DATE OF PROCEDURE: 04/27/2019 REFERRING PHYSICIAN: Dr. Mason. INDICATION: Staphylococcus aureus bacteremia. PROCEDURE: Transesophageal echocardiogram. ANESTHESIOLOGY: Claudia Roberts CRNA BRIEF HISTORY: The patient is a very pleasant gentleman who presented with generalized illness and shortness of breath and was found to have numerous blood cultures positive for methicillin-sensitive Staphylococcus aureus (MSSA). This prompted performance of transesophageal echocardiogram after transthoracic echocardiogram did not reveal any convincing vegetation. I explained the nature of the procedure to the patient. He signed appropriate consent. I explained to him that due to underlying liver cirrhosis and thrombocytopenia, he has high risk of bleeding complications. DESCRIPTION OF PROCEDURE: Procedure was performed in operating room. The patient presented in fasting condition. After appropriate time-out was taken and all appropriate monitors were applied, his posterior pharynx was anesthetized using viscous lidocaine and Cetacaine spray. He was then positioned in left lateral decubital position. After appropriate level sedation was accomplished, a probe was introduced into esophagus and later stomach without difficulty. After all appropriate images were obtained, it was withdrawn. There were no immediate complications, and the patient tolerated the procedure well. FINDINGS: Left ventricle has normal contractility, I estimate ejection fraction (EF) around 60%. Right ventricle also appears to have normal systolic function. Aortic valve is mildly sclerotic. There are calcifications apparent on two coronary cusps. There are small mobile echodensities attached to edges of aortic valve not exceeding 2 or 3 mm in length. In appropriate clinical setting, these could represent small vegetations. Functionally there is no significant aortic stenosis or insufficiency. Mitral valve exhibits less than 1 cm globular echodensity attached toward the base of posterior mitral leaflet, it is freely mobile and attached to the leaflet with a small stalk. In appropriate clinical setting, this most likely represents vegetation, even though without presence of bacteremia, I would be more in favor of diagnosis of fibroelastoma. Functionally there is mild mitral insufficiency. Left atrial appendage is free of thrombus. There is normal blood flow in both left and right-sided pulmonary veins. Atrial septum is intact based on 2D and color Doppler imaging. Tricuspid valve appears normal. There is no significant stenosis or insufficiency and no visualized vegetations. Same applies for pulmonic valve. There is fairly prominent atherosclerosis of descending aorta and aortic arch. In the aortic arch, there is probably thrombus attached to aortic wall protruding into aortic lumen. CONCLUSIONS: 1. Mobile echodensity attached to posterior mitral leaflet, in this clinical setting likely representing vegetation even though fibroelastoma is in differential diagnosis. Mild mitral insufficiency. 2. Sclerotic abnormalities of tricuspid aortic valve with small thread-like echodensities apparent on several of aortic cusps. No stenosis or insufficiency of the valve. In this clinical setting most likely representing vegetations. 3. Normal tricuspid and pulmonic valves. 4. Normal left ventricular (LV) systolic function. 5. Intact atrial septum. 6. Normal left atrial appendage. 7. Normal flow in both left and right-sided pulmonary veins. 8. Very prominent atherosclerosis of thoracic aorta including mural thrombus. COMMENT: Results of the study were communicated to Dr. Mason and Dr. Coppola. In the current clinical setting, unfortunately this likely establishes diagnosis of endocarditis. I spoke with the patient about results of the study as well. MIGUEL A
[2019-04-27] MEDS ORDERED: LEVEMIR (INSULIN DETEMIR) 1 UNITS/0.01ML SC SCH (21:00)
[2019-04-27] MEDS ORDERED: HumaLOG INSULIN (NovoLOG) PER UNIT SC ONE (21:00)
[2019-04-27] MEDS: RAMELTEON 8 MG TAB (ROZEREM) PO SCH (21:29)
[2019-04-27] MEDS: lisinopriL 10 MG TAB PO SCH (21:30)
--- NOTE | 2019-04-27 22:55 | IPN ---
DATE: 04/27/2019 Mr. Denise was seen this afternoon. He was sitting in his chair waiting for his transesophageal echocardiogram (SIMEON), that was done by Dr. Cormier this afternoon. SIMEON finding showed a vegetation of his mitral valve and possibly also of his aortic valve. The official report has not been dictated by Dr. Cormier, but he relayed this information to me. The patient denies any increase in shortness of breath, although he was wearing oxygen. When I asked the nurse, it was related to the fact that he was sleeping and he has a history of sleep apnea. He states his back pain and hip pain have improved. He has had no fever or chills. LABORATORY DATA: White count is 10.5, continued to improve, hemoglobin 9.2, hematocrit 26.2, platelets 63, stable. Sodium 127, potassium 3.8, chloride 86, bicarbonate 35, BUN 26, creatinine 0.76, glucose 390, calcium 7.8, magnesium 1.6, CRP 3.26 down from 7.93. Blood cultures were positive from 04/21 to and two sets were negative on 04/24 and 04/25. Chest CT done on 04/24 shows several areas of new patchy infiltrate scattered bilaterally, more so in the upper lobes and calcified granulomas in the spleen, subcentimeter mediastinal lymph nodes are present as well. On physical exam, temperature is 97.4, pulse 99, respirations 18, blood pressure 156/67, oxygen saturation (O2 sat) 96% on room air. Heart: Normal S1, S2 with a holosystolic ejection murmur 2/6, best heard at the left apex. Lungs: Diminished breath sounds at the bases. Abdomen: Morbidly obese, soft, nontender. Extremities: +1 pitting edema bilaterally. Oropharynx edentulous. IMPRESSION: 1. 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 The vegetation of the mitral valve per Dr. Cormier's oral report was about 1 cm, but the patient is not a surgical candidate to be transferred to [place] with a history of cirrhosis. He is afebrile. He is not in congestive heart failure and his labs are improving. The patient will be treated medically with 6 weeks of IV antibiotics. 2. Benign prostatic hypertrophy. The patient had urinary retention and has a Reeves catheter in place. Please consider removing the catheter and try to give him a voiding trial to decrease the risk of urinary tract infection. The patient is on Proscar 5 mg by mouth daily but not on Flomax; may consider adding that to his regimen. 3. History of alcoholic liver cirrhosis. On Aldactone. PLAN: Peripherally inserted central catheter (PICC) line placement tomorrow. The patient will need home IV antibiotic for 6 weeks end of Tx will be 06/06/2019. He states he has family members and friends that could help him with IV antibiotic. [facility] is [facility], and I am not sure if will need to contact the [facility] regarding his home antibiotics if that could be obtained through his Medicare. Consult PFS to start discharge treatment plan for home IV antibiotics. MIGUEL A
[2019-04-28] VITALS (22 sets, daily range): BP systolic 124–168; BP diastolic 54–73; O2SAT 87–98
[2019-04-28] MEDS ORDERED: HumaLOG INSULIN (NovoLOG) PER UNIT SC ONE
[2019-04-28] MEDS: LEVALBUTEROL 1.25 MG/0.5 ML CONCENTRATE NEB INH PRN (01:49)
[2019-04-28] MEDS: ACETAMINOPHEN TAB 650MG DOSE (2X325MG) PO PRN ×2 (03:40→12:08)
[2019-04-28] MEDS: IPRATROPIUM 0.5MG/ALBUTEROL 2.5MG INH SOL UD 3ML (DUONEB)(J7620) NEB SCH ×6 (03:40→23:58)
[2019-04-28] MEDS: FUROSEMIDE 100 MG/10 ML VIAL (J1940) IV SCH ×4 (03:40→21:26)
[2019-04-28] MEDS: ceFAZolin SOD 2 GM in IV 1 EA IV SCH ×3 (03:41→17:55)
[2019-04-28 05:50] LABS: HEMATOCRIT 26.1 % (42.0-52.0); HEMOGLOBIN 9.3 g/dl (13.5-17.5); MEAN CORPUSCULAR HEMOGLOBIN 30.4 pg (27.0-33.0); MEAN CORPUSCULAR HGB CONC 35.6 g/dl (32.0-36.5); MEAN CORPUSCULAR VOLUME 85.3 fl (80.0-96.0); PLATELET COUNT, AUTOMATED 75 10^3/uL (150-450); RED BLOOD COUNT 3.06 10^6/uL (4.30-6.10); WHITE BLOOD COUNT 10.3 10^3/uL (4.0-10.0)
[2019-04-28 06:11] LABS: BLOOD UREA NITROGEN 27 MG/DL (7-18); CALCIUM LEVEL 7.8 MG/DL (8.8-10.2); CARBON DIOXIDE LEVEL 37 MEQ/L (21-32); CHLORIDE LEVEL 87 MEQ/L (98-107); CREATININE FOR GFR 0.84 MG/DL (0.70-1.30); GLOMERULAR FILTRATION RATE > 60.0 (>42); GLUCOSE, FASTING 293 MG/DL (70-100); MAGNESIUM LEVEL 1.7 MG/DL (1.8-2.4); POTASSIUM SERUM 3.3 MEQ/L (3.5-5.1); SODIUM LEVEL 130 MEQ/L (136-145)
[2019-04-28] MEDS: HumaLOG INSULIN (NovoLOG) PER UNIT SC SCH ×4 (07:30→21:26)
[2019-04-28] MEDS: SPIRONOLACTONE 50 MG TAB PO SCH (08:31)
[2019-04-28] MEDS: MAGNESIUM OXIDE 400 MG TAB (MAG-OX) PO SCH ×2 (08:31→21:27)
[2019-04-28] MEDS: methylPREDNISolone INJ 40 MG/1 ML VIAL (J2920) IV SCH (08:31)
[2019-04-28] MEDS: LORATADINE 10 MG TAB PO SCH (08:31)
[2019-04-28] MEDS: DULoxetine 30 MG CAP (CYMBALTA) PO SCH (08:31)
[2019-04-28] MEDS: FINASTERIDE 5 MG TAB PO SCH (08:31)
[2019-04-28] MEDS: ASPIRIN 81 MG ENTERIC TAB PO SCH (08:32)
[2019-04-28] MEDS: PANTOPRAZOLE 40MG TAB (PROTONIX) PO SCH (08:32)
[2019-04-28] MEDS: DOCUSATE SODIUM 100 MG CAP PO SCH ×2 (08:32→21:27)
[2019-04-28] MEDS: allopurinoL 100 MG TAB PO SCH (08:32)
[2019-04-28] MEDS: TIOTROPIUM INHALER/CAPSULE (SPIRIVA) INH SCH (09:45)
[2019-04-28] MEDS: CEPACOL LOZENGE PO PRN (10:48)
--- NOTE | 2019-04-28 12:33 | IPN ---
DATE: 04/28/2019 Roshan is seen in the progressive care unit (PCU). He is resting comfortably, sleeping when I saw him. were reviewed. He has MSSA endocarditis of mitral and aortic valve. PHYSICAL EXAMINATION: Afebrile. Vital signs stable. General Appearance: He is chronically ill-appearing, resting comfortably. No jugular venous distention (JVD). Lungs have a few wheezes. Heart: Regular rhythm. 1/6 systolic ejection murmur, which is unchanged. Abdomen: Soft, nontender. Trace peripheral edema. LABORATORY DATA: White count 10.3, hemoglobin 9.3, platelets 75. Sodium 130, potassium 3.3, BUN 27, creatinine 0.8, glucose 93. Blood sugars are still elevated in the 400 range. IMPRESSION: 1. MSSA aortic mitral endocarditis. Continue his current antibiotic regimen Ancef 2 grams every 8 hours. He is being followed by infectious disease. 2. Diabetes. Basal insulin dose increased. Yesterday, I reduced his Solu-Medrol. Tomorrow will probably put him on oral prednisone. 3. Exacerbation of chronic obstructive pulmonary disease (COPD). Continue nebulized bronchodilator and steroid therapy. 4. Hypertension. Blood pressure has been under good control in general, occasional mild elevations probably from steroid therapy. Patient and family services (PFS) to help coordinate plans for home IV antibiotics. I met with the family yesterday and I am skeptical that home IV antibiotics is going to work out.
[2019-04-28] MEDS: LIDOCAINE 5% (LIDODERM) PATCH TOP PRN (14:43)
[2019-04-28] MEDS ORDERED: LIDOCAINE 1% MDV 20ML VIAL As Ordered ONE (15:38)
[2019-04-28] MEDS ORDERED: POTASSIUM CHLORIDE 10 MEQ SR TABLET PO ONE (16:00)
[2019-04-28] MEDS: SODIUM CHLORIDE 0.9% INJ 10 ML SYR IV SCH (17:18)
[2019-04-28] MEDS: SODIUM CHLORIDE 0.9% INJ 10 ML SYR IV PRN (18:53)
[2019-04-28] MEDS: LEVEMIR (INSULIN DETEMIR) 1 UNITS/0.01ML SC SCH (21:27)
[2019-04-28] MEDS: RAMELTEON 8 MG TAB (ROZEREM) PO SCH (21:27)
[2019-04-28] MEDS: lisinopriL 10 MG TAB PO SCH (21:27)
[2019-04-29] VITALS (23 sets, daily range): BP systolic 148–165; BP diastolic 62–72; O2SAT 90–100
[2019-04-29] MEDS: ceFAZolin SOD 2 GM in IV 1 EA IV SCH ×3 (03:25→18:35)
[2019-04-29] MEDS: ACETAMINOPHEN TAB 650MG DOSE (2X325MG) PO PRN (03:26)
[2019-04-29] MEDS: FUROSEMIDE 100 MG/10 ML VIAL (J1940) IV SCH ×2 (03:26→10:33)
[2019-04-29] MEDS: IPRATROPIUM 0.5MG/ALBUTEROL 2.5MG INH SOL UD 3ML (DUONEB)(J7620) NEB SCH ×6 (04:07→23:46)
[2019-04-29] MEDS: SODIUM CHLORIDE 0.9% INJ 10 ML SYR IV SCH ×2 (06:02→18:34)
[2019-04-29] MEDS: TIOTROPIUM INHALER/CAPSULE (SPIRIVA) INH SCH (07:22)
[2019-04-29] MEDS: HumaLOG INSULIN (NovoLOG) PER UNIT SC SCH ×4 (07:30→20:36)
[2019-04-29 09:40] LABS: HEMATOCRIT 30.2 % (42.0-52.0); HEMOGLOBIN 10.3 g/dl (13.5-17.5); MEAN CORPUSCULAR HGB CONC 34.1 g/dl (32.0-36.5); RED BLOOD COUNT 3.43 10^6/uL (4.30-6.10); WHITE BLOOD COUNT 15.3 10^3/uL (4.0-10.0)
[2019-04-29 09:49] LABS: PLATELET COUNT, AUTOMATED 85 10^3/uL (150-450)
[2019-04-29 09:55] LABS: BLOOD UREA NITROGEN 26 MG/DL (7-18); CALCIUM LEVEL 8.4 MG/DL (8.8-10.2); CARBON DIOXIDE LEVEL 37 MEQ/L (21-32); CHLORIDE LEVEL 90 MEQ/L (98-107); CREATININE FOR GFR 0.82 MG/DL (0.70-1.30); GLOMERULAR FILTRATION RATE > 60.0 (>42); GLUCOSE, FASTING 151 MG/DL (70-100); MAGNESIUM LEVEL 1.6 MG/DL (1.8-2.4); POTASSIUM SERUM 3.4 MEQ/L (3.5-5.1); SODIUM LEVEL 131 MEQ/L (136-145)
[2019-04-29] MEDS: ASPIRIN 81 MG ENTERIC TAB PO SCH (10:05)
[2019-04-29] MEDS: SPIRONOLACTONE 50 MG TAB PO SCH (10:05)
[2019-04-29] MEDS: FINASTERIDE 5 MG TAB PO SCH (10:05)
[2019-04-29] MEDS: PANTOPRAZOLE 40MG TAB (PROTONIX) PO SCH (10:06)
[2019-04-29] MEDS: MAGNESIUM OXIDE 400 MG TAB (MAG-OX) PO SCH ×2 (10:06→20:35)
[2019-04-29] MEDS: allopurinoL 100 MG TAB PO SCH (10:06)
[2019-04-29] MEDS: DOCUSATE SODIUM 100 MG CAP PO SCH ×2 (10:07→20:35)
[2019-04-29] MEDS: DULoxetine 30 MG CAP (CYMBALTA) PO SCH (10:07)
[2019-04-29] MEDS: LORATADINE 10 MG TAB PO SCH (10:07)
[2019-04-29] MEDS: methylPREDNISolone INJ 40 MG/1 ML VIAL (J2920) IV SCH (10:07)
[2019-04-29 11:14] LABS: C REACTIVE PROTEIN QUANTITATIV 1.49 MG/DL (0.00-0.30)
--- NOTE | 2019-04-29 11:35 | IPN ---
DATE: 04/29/2019 Roshan is seen in progressive care unit (PCU). He is coughing up essentially plugs of inspissated mucus with dried blood. He says he suddenly lost his vision in his right eye. He said it was getting slowly worse. He had lost vision in the right, and left eye vision is poor as well. White count has gone up a little bit over the last day or so. He remains afebrile. He had some hypokalemia that we had to address with oral supplement. PHYSICAL EXAM: 150/62, pulse 100, respiratory rate 22, 94% oxygen saturation. Could not really test his vision well in the exam room. Lungs: Clear. Heart: Regular rhythm. Abdomen: Soft, nontender. Trace peripheral edema. LABS: Sodium 131, potassium 3.4, BUN 26, creatinine 0.8, glucose 150. White count 15.3, up from 10 yesterday. Hemoglobin 10.3, platelets 85. IMPRESSION: 1. Methicillin-sensitive Staphylococcus bacteremia. He is on Ancef 2 grams intravenous (IV) every 8 hours, needs 6 weeks of this. He has a peripherally inserted central catheter (PICC) line in. 2. Sudden vision loss. There is no certified art therapist marketing and promotions manager today. Concern it is related to the staphylococcus bacteremia. I do not see any clouding of the cornea, but I do not have any instruments to really evaluate this well. It could be related to his diabetes as well. 3. Diabetes. His blood sugars have ranged between 150 and 400. We have been escalating the dose of his detemir insulin. 4. Leukocytosis. I am concerned about the rise of his white count. Will get a C-reactive protein tomorrow. 5. Methicillin-sensitive Staphylococcus aureus (MSSA) endocarditis. 6 weeks of IV antibiotic, as summarized above.
[2019-04-29] MEDS: POTASSIUM CHLORIDE 10 MEQ SR TABLET PO SCH (11:49)
[2019-04-29] MEDS ORDERED: MAG SULF 1GM/100ML (MAG RUN) 1 GM in IV 1 EA IV ONE (12:00)
[2019-04-29] MEDS: SODIUM CHLORIDE 0.9% INJ 10 ML SYR IV PRN (13:58)
--- NOTE | 2019-04-29 18:20 | REP ---
Procedure: PICC line insertion with [facility] The procedure was performed under the direct supervision of Dr. Coreas. The risks and benefits of the procedure were explained to the patient and informed consent was obtained. The right brachial vein was localized using ultrasound guidance. The skin was prepped and draped in a sterile fashion. 1% lidocaine was used as a local anesthetic. Using ultrasound guidance the brachial vein was cannulated and a 0.018 guidewire was inserted and advanced to the SVC using fluoroscopic guidance. The needle was removed and a 4.5 Polish dilator and peel-away sheath was inserted over the guide wire. A 4.5 Polish single lumen catheter was cut to length of 42 cm. The dilator was removed and the catheter was inserted over the guide wire with the tip ending in the SVC. The peel-away sheath was removed and the catheter was flushed with heparinized saline as per Hospital protocol. The catheter was affixed to the skin and a sterile dressing was applied. The patient tolerated the procedure well and there were no immediate complications. 0.2 minutes of fluoro time was utilized for this procedure. Electronically Signed by ALFONSO Salamanca 04/29/2019 04:49 P Electronically Signed by Graham Coreas MD 04/29/2019 06:12 P
[2019-04-29] MEDS: lisinopriL 10 MG TAB PO SCH (20:35)
[2019-04-29] MEDS: RAMELTEON 8 MG TAB (ROZEREM) PO SCH (20:35)
[2019-04-29] MEDS: LEVEMIR (INSULIN DETEMIR) 1 UNITS/0.01ML SC SCH (20:36)
[2019-04-30] VITALS (14 sets, daily range): BP systolic 135–166; BP diastolic 61–76; O2SAT 92–96
[2019-04-30] MEDS: ceFAZolin SOD 2 GM in IV 1 EA IV SCH ×3 (02:47→18:52)
[2019-04-30] MEDS: IPRATROPIUM 0.5MG/ALBUTEROL 2.5MG INH SOL UD 3ML (DUONEB)(J7620) NEB SCH ×5 (03:47→19:47)
[2019-04-30] MEDS: ACETAMINOPHEN TAB 650MG DOSE (2X325MG) PO PRN ×2 (03:47→21:53)
[2019-04-30] MEDS: SODIUM CHLORIDE 0.9% INJ 10 ML SYR IV SCH ×2 (03:48→17:26)
[2019-04-30 06:09] LABS: HEMATOCRIT 27.5 % (42.0-52.0); HEMOGLOBIN 9.4 g/dl (13.5-17.5); MEAN CORPUSCULAR HGB CONC 34.2 g/dl (32.0-36.5); MEAN CORPUSCULAR VOLUME 87.9 fl (80.0-96.0); RED BLOOD COUNT 3.13 10^6/uL (4.30-6.10); WHITE BLOOD COUNT 14.3 10^3/uL (4.0-10.0)
[2019-04-30 06:11] LABS: PLATELET COUNT, AUTOMATED 74 10^3/uL (150-450)
[2019-04-30 06:25] LABS: BLOOD UREA NITROGEN 20 MG/DL (7-18); CALCIUM LEVEL 8.5 MG/DL (8.8-10.2); CARBON DIOXIDE LEVEL 38 MEQ/L (21-32); CHLORIDE LEVEL 90 MEQ/L (98-107); CREATININE FOR GFR 0.66 MG/DL (0.70-1.30); GLOMERULAR FILTRATION RATE > 60.0 (>42); GLUCOSE, FASTING 154 MG/DL (70-100); MAGNESIUM LEVEL 1.9 MG/DL (1.8-2.4); POTASSIUM SERUM 3.7 MEQ/L (3.5-5.1); SODIUM LEVEL 130 MEQ/L (136-145)
[2019-04-30] MEDS: TIOTROPIUM INHALER/CAPSULE (SPIRIVA) INH SCH (08:37)
[2019-04-30] MEDS: POTASSIUM CHLORIDE 10 MEQ SR TABLET PO SCH (09:33)
[2019-04-30] MEDS: LORATADINE 10 MG TAB PO SCH (09:33)
[2019-04-30] MEDS: PANTOPRAZOLE 40MG TAB (PROTONIX) PO SCH (09:33)
[2019-04-30] MEDS: FUROSEMIDE 40 MG TAB PO SCH (09:33)
[2019-04-30] MEDS: ASPIRIN 81 MG ENTERIC TAB PO SCH (09:33)
[2019-04-30] MEDS: predniSONE 20 MG TAB PO SCH (09:33)
[2019-04-30] MEDS: FINASTERIDE 5 MG TAB PO SCH (09:33)
[2019-04-30] MEDS: SPIRONOLACTONE 50 MG TAB PO SCH (09:34)
[2019-04-30] MEDS: DULoxetine 30 MG CAP (CYMBALTA) PO SCH (09:34)
[2019-04-30] MEDS: MAGNESIUM OXIDE 400 MG TAB (MAG-OX) PO SCH ×2 (09:34→21:48)
[2019-04-30] MEDS: allopurinoL 100 MG TAB PO SCH (09:34)
[2019-04-30] MEDS: HumaLOG INSULIN (NovoLOG) PER UNIT SC SCH ×4 (09:34→21:49)
[2019-04-30] MEDS: DOCUSATE SODIUM 100 MG CAP PO SCH ×2 (09:34→21:48)
--- NOTE | 2019-04-30 10:23 | IPN ---
DATE: 04/30/2019 Roshan is seen in the progressive care unit (PCU). He feels well. No change from yesterday. He indicated today that he did not want go home for his long-term antibiotic therapy. He wants to go "the safest place" (his words), so we are going to be pursuing short-term rehabilitation. PHYSICAL EXAMINATION: Blood pressure 135/61, afebrile. GENERAL APPEARANCE: He is lying in bed, in no distress. LUNGS: Clear. HEART: Regular rate and rhythm, 1/6 systolic ejection murmur. ABDOMEN: Soft, nontender. No masses. Trace peripheral edema. LABORATORY DATA: Electrolytes are unchanged. C-reactive protein is down to 1.49. White count is 14.3. IMPRESSION: 1. Methicillin-sensitive Staphylococcus bacteremia, on Ancef 2 grams every eight hours for six weeks. This was started on 04/28/2019 so his six weeks would be up on 06/09/2019. 2. Vision change. We do not have an steam box hand available today. His loss of vision is summarized yesterday. He needs to see an steam box hand once there is one available for consultation. 3. Methicillin-sensitive Staphylococcus aureus endocarditis. Six weeks of IV antibiotic finishing on 06/09/2019. 4. Diabetes. Blood sugars are erratic but generally trending down.
[2019-04-30] MEDS: TAMSULOSIN 0.4 MG CAP PO SCH (12:27)
--- NOTE | 2019-04-30 15:58 | IPN ---
DATE: 04/29/2019 Mr. Denise is doing fairly well. He still has a urinary catheter and they have not given him a trial of voiding trial. He has a problem with chronic benign prostatic hypertrophy (BPH) and has been on Proscar but not on Flomax. He denies any chest pain or shortness of breath. He has chronic hoarseness and no fever or chills. No nausea, vomiting or diarrhea. PHYSICAL EXAMINATION: Temperature is 98.6, pulse 104, respirations 20, blood pressure 116/72, oxygen saturation 93% on 2 liters nasal cannula. HEART: Normal S1, S2 with a holosystolic murmur, 3/6, mostly at the left lower sternal border and apex. ABDOMEN: Soft, nontender. No visceromegaly. EXTREMITIES: Trace edema bilaterally. LUNGS: Decreased breath sounds at the bases. Reeves catheter in place. On review of Dr. Coppola's note, there was concern of the patient losing his vision in his right eye. Echocardiogram on : Mobile echodensity attached to the posterior mitral leaflet, likely representing vegetation with mild mitral insufficiency, sclerotic abnormalities of tricuspid working valve with thread-like echodensities apparent on several of the aortic cusps. Again, these are consistent with vegetation. Normal tricuspid and pulmonic valve. Normal left ventricle systolic ejection fraction and very prominent atherosclerosis of the thoracic aorta including a mural thrombus.. LABORATORY DATA: White count is 15.3, hemoglobin 10.3, hematocrit 30.2, platelets 85. Sodium 131, potassium 3.4, chloride 90, bicarbonate 37, BUN 26, creatinine 0.82, glucose 151, calcium 8.4, magnesium 1.6. CRP 1.49 down from 7.93. Blood culture on 04/21/2019, 04/22/2019 and 04/24/2019 were positive and they were negative on 04/25/2019 and 04/26/2019. IMPRESSION: 1. Methicillin-sensitive Staphylococcus aureus (MSSA) endocarditis of the aortic and mitral valve. The patient currently on intravenous (IV) cefazolin. He will need six weeks of IV antibiotics with end of therapy planned for 06/06/2019. 2. Subtle visual loss concerning for an embolic phenomenon from the vegetation. The patient needs a dilated eye exam to rule out endophthalmitis. 3. Congestive heart failure. The patient was on IV furosemide 80 mg every 6 hours. 3. History of liver cirrhosis with thrombocytopenia, which makes it very unlikely that he would be a surgical candidate in case his endocarditis gets worse or he develops valvular insufficiencies. PLAN: Continue with IV cefazolin. The patient has a peripherally inserted central catheter (PICC) line placed for anticipation of discharge home or to the [facility] for continued IV antibiotic. Eye exam when available. Per Dr. Cormier of cardiology, he is not a surgical candidate for him to be transferred to a tertiary care center. Case has been discussed with Dr. Coppola, who had also some concern about his discharge home, with a lack of family support. According to the patient, a family member is a certified nurse's aide that could help him with his IV antibiotic and the patient does not want to go to a fdc.
[2019-04-30] MEDS: RAMELTEON 8 MG TAB (ROZEREM) PO SCH (21:48)
[2019-04-30] MEDS: lisinopriL 10 MG TAB PO SCH (21:48)
[2019-04-30] MEDS: LEVEMIR (INSULIN DETEMIR) 1 UNITS/0.01ML SC SCH (21:49)
[2019-05-01] VITALS (11 sets, daily range): BP systolic 132–145; BP diastolic 60–68; O2SAT 93–98
[2019-05-01] MEDS: IPRATROPIUM 0.5MG/ALBUTEROL 2.5MG INH SOL UD 3ML (DUONEB)(J7620) NEB SCH ×7 (01:04→23:53)
[2019-05-01] MEDS: ACETAMINOPHEN TAB 650MG DOSE (2X325MG) PO PRN ×3 (02:35→20:36)
[2019-05-01] MEDS: ceFAZolin SOD 2 GM in IV 1 EA IV SCH ×3 (02:36→18:25)
[2019-05-01] MEDS: SODIUM CHLORIDE 0.9% INJ 10 ML SYR IV SCH ×2 (05:17→18:25)
[2019-05-01 05:43] LABS: HEMATOCRIT 25.9 % (42.0-52.0); HEMOGLOBIN 8.8 g/dl (13.5-17.5); MEAN CORPUSCULAR HEMOGLOBIN 29.8 pg (27.0-33.0); MEAN CORPUSCULAR VOLUME 87.8 fl (80.0-96.0); RED BLOOD COUNT 2.95 10^6/uL (4.30-6.10)
[2019-05-01 05:45] LABS: PLATELET COUNT, AUTOMATED 69 10^3/uL (150-450)
[2019-05-01 05:54] LABS: BLOOD UREA NITROGEN 20 MG/DL (7-18); CALCIUM LEVEL 8.5 MG/DL (8.8-10.2); CARBON DIOXIDE LEVEL 36 MEQ/L (21-32); CHLORIDE LEVEL 93 MEQ/L (98-107); CREATININE FOR GFR 0.57 MG/DL (0.70-1.30); GLOMERULAR FILTRATION RATE > 60.0 (>42); GLUCOSE, FASTING 85 MG/DL (70-100); MAGNESIUM LEVEL 1.6 MG/DL (1.8-2.4); POTASSIUM SERUM 3.8 MEQ/L (3.5-5.1); SODIUM LEVEL 132 MEQ/L (136-145)
[2019-05-01] MEDS: HumaLOG INSULIN (NovoLOG) PER UNIT SC SCH ×4 (06:10→20:43)
[2019-05-01] MEDS: TIOTROPIUM INHALER/CAPSULE (SPIRIVA) INH SCH (07:38)
[2019-05-01] MEDS: ASPIRIN 81 MG ENTERIC TAB PO SCH (08:49)
[2019-05-01] MEDS: SPIRONOLACTONE 50 MG TAB PO SCH (08:50)
[2019-05-01] MEDS: allopurinoL 100 MG TAB PO SCH (08:50)
[2019-05-01] MEDS: FINASTERIDE 5 MG TAB PO SCH (08:50)
[2019-05-01] MEDS: POTASSIUM CHLORIDE 10 MEQ SR TABLET PO SCH (08:50)
[2019-05-01] MEDS: MAGNESIUM OXIDE 400 MG TAB (MAG-OX) PO SCH ×2 (08:50→20:36)
[2019-05-01] MEDS: DULoxetine 30 MG CAP (CYMBALTA) PO SCH (08:51)
[2019-05-01] MEDS: PANTOPRAZOLE 40MG TAB (PROTONIX) PO SCH (08:52)
[2019-05-01] MEDS: predniSONE 20 MG TAB PO SCH (08:52)
[2019-05-01] MEDS: FUROSEMIDE 40 MG TAB PO SCH (08:52)
[2019-05-01] MEDS: TAMSULOSIN 0.4 MG CAP PO SCH (08:52)
[2019-05-01] MEDS: DOCUSATE SODIUM 100 MG CAP PO SCH ×2 (08:52→20:37)
[2019-05-01] MEDS: LORATADINE 10 MG TAB PO SCH (08:52)
--- NOTE | 2019-05-01 08:59 | IPN ---
DATE: 04/30/2019 Mr. Denise is a little frustrated. He wanted to home to finish with IV antibiotic but it seems like his caregivers and his [id number] who is a certified nurse's aide is not willing to do the IV antibiotics. He still complains of some shortness of breath. He still has a urinary catheter in place. He has no nausea, vomiting or diarrhea. No abdominal pain. PHYSICAL EXAMINATION: Temperature 98.3, pulse 96, respirations 20, blood pressure 135/60, oxygen saturation 93% on room air. Heart: Normal S1, S2. Holosystolic murmur 3/6 over precordium. Lungs: Few exterior wheezes bilaterally. No rhonchi. No crackles. Abdomen: Soft, nontender, obese. Extremities: +1 pitting edema. LABORATORY DATA White count is 14.3, hemoglobin 9.4, hematocrit 27.5, platelets 74. Sodium 130, potassium 3.7, chloride 90, bicarb 38, BUN 20, creatinine 0.6, glucose 154, calcium 8.5, magnesium 1.9. Blood cultures were negative on 04/24 and 04/25. IMPRESSION 1. MSSA endocarditis of the aortic valve and mitral valve. The patient not a surgical candidate. He will need 6 weeks of IV antibiotics. End of therapy will be 06/09/2019. He will be treated with cefazolin 2 grams IV every 8 hours. 2. Visual loss. The patient needs an ophthalmology consult to rule out septic emboli. Needs to be arranged when internet site designer available. 3. Liver cirrhosis with thrombocytopenia, on furosemide. Patient was on aldactone on admission but this has been held. May need to restart it. 4. Urinary retention, history of benign prostatic hypertrophy (BPH). Please give him a voiding trial. PLAN Continue IV cefazolin until 06/09/2019. Patient will need followup in my office in 2-3 weeks after discharge. He will need CBC, CMP, ESR, CRP weekly. MTDD
[2019-05-01] MEDS: CEPACOL LOZENGE PO PRN ×2 (09:02→20:36)
--- NOTE | 2019-05-01 09:49 | IPN ---
DATE: 05/01/2019 Not much new with Roshan. He is a little discouraged. Spent some time trying to lift his spirits. We do at least have an end date for his antibiotics, which is June 08. He was encouraged that he had an end date to work towards. He remains afebrile. Vital signs stable. Lungs clear. Heart regular without murmur. Abdomen soft, nontender, no pitting edema. LABS: White count 13,000. The rest of the lab work looks unremarkable. IMPRESSION: Methicillin sensitive staphylococcus endocarditis, on Ancef 2 grams IV every 8 hours for an end date of 06/09/2019. Vision change. Needs to see an charter and tour bus driver. There is none engineer second assistant this weekend. The rest of the medical problems are stable.
[2019-05-01] MEDS: RAMELTEON 8 MG TAB (ROZEREM) PO SCH (20:36)
[2019-05-01] MEDS: lisinopriL 10 MG TAB PO SCH (20:37)
[2019-05-01] MEDS: LEVEMIR (INSULIN DETEMIR) 1 UNITS/0.01ML SC SCH (20:37)
[2019-05-02] VITALS (19 sets, daily range): BP systolic 129–150; BP diastolic 60–70; O2SAT 91–97
[2019-05-02] MEDS: IPRATROPIUM 0.5MG/ALBUTEROL 2.5MG INH SOL UD 3ML (DUONEB)(J7620) NEB SCH ×5 (03:20→20:00)
[2019-05-02] MEDS: ceFAZolin SOD 2 GM in IV 1 EA IV SCH ×3 (03:22→18:01)
[2019-05-02] MEDS: SODIUM CHLORIDE 0.9% INJ 10 ML SYR IV SCH ×2 (04:12→17:59)
[2019-05-02] MEDS: ACETAMINOPHEN TAB 650MG DOSE (2X325MG) PO PRN ×2 (04:12→09:29)
[2019-05-02] MEDS: CEPACOL LOZENGE PO PRN ×3 (04:13→23:27)
[2019-05-02 04:39] LABS: HEMATOCRIT 25.7 % (42.0-52.0); HEMOGLOBIN 8.7 g/dl (13.5-17.5); MEAN CORPUSCULAR HEMOGLOBIN 30.3 pg (27.0-33.0); MEAN CORPUSCULAR HGB CONC 33.9 g/dl (32.0-36.5); MEAN CORPUSCULAR VOLUME 89.5 fl (80.0-96.0); RED BLOOD COUNT 2.87 10^6/uL (4.30-6.10); WHITE BLOOD COUNT 14.4 10^3/uL (4.0-10.0)
[2019-05-02 04:44] LABS: BLOOD UREA NITROGEN 19 MG/DL (7-18); CALCIUM LEVEL 7.9 MG/DL (8.8-10.2); CARBON DIOXIDE LEVEL 33 MEQ/L (21-32); CHLORIDE LEVEL 95 MEQ/L (98-107); CREATININE FOR GFR 0.73 MG/DL (0.70-1.30); GLOMERULAR FILTRATION RATE > 60.0 (>42); GLUCOSE, FASTING 121 MG/DL (70-100); MAGNESIUM LEVEL 1.8 MG/DL (1.8-2.4); POTASSIUM SERUM 4.2 MEQ/L (3.5-5.1); SODIUM LEVEL 133 MEQ/L (136-145)
[2019-05-02 04:46] LABS: PLATELET COUNT, AUTOMATED 77 10^3/uL (150-450)
[2019-05-02] MEDS: TIOTROPIUM INHALER/CAPSULE (SPIRIVA) INH SCH (07:40)
[2019-05-02] MEDS: HumaLOG INSULIN (NovoLOG) PER UNIT SC SCH ×4 (09:27→20:10)
[2019-05-02] MEDS: ASPIRIN 81 MG ENTERIC TAB PO SCH (09:27)
[2019-05-02] MEDS: FINASTERIDE 5 MG TAB PO SCH (09:27)
[2019-05-02] MEDS: allopurinoL 100 MG TAB PO SCH (09:27)
[2019-05-02] MEDS: SPIRONOLACTONE 50 MG TAB PO SCH (09:28)
[2019-05-02] MEDS: POTASSIUM CHLORIDE 10 MEQ SR TABLET PO SCH (09:28)
[2019-05-02] MEDS: MAGNESIUM OXIDE 400 MG TAB (MAG-OX) PO SCH ×2 (09:28→20:09)
[2019-05-02] MEDS: PANTOPRAZOLE 40MG TAB (PROTONIX) PO SCH (09:29)
[2019-05-02] MEDS: predniSONE 20 MG TAB PO SCH (09:30)
[2019-05-02] MEDS: LORATADINE 10 MG TAB PO SCH (09:30)
[2019-05-02] MEDS: FUROSEMIDE 40 MG TAB PO SCH (09:30)
[2019-05-02] MEDS: DOCUSATE SODIUM 100 MG CAP PO SCH ×2 (09:30→20:10)
[2019-05-02] MEDS: TAMSULOSIN 0.4 MG CAP PO SCH (09:30)
[2019-05-02] MEDS: DULoxetine 30 MG CAP (CYMBALTA) PO SCH (09:30)
[2019-05-02 11:03] LABS: C REACTIVE PROTEIN QUANTITATIV 3.46 MG/DL (0.00-0.30)
[2019-05-02 11:05] LABS: ERYTHROCYTE SEDIMENTATION RATE 63 mm/hr (0-20)
[2019-05-02] MEDS: SODIUM CHLORIDE 0.9% INJ 10 ML SYR IV PRN (12:57)
[2019-05-02] MEDS: RAMELTEON 8 MG TAB (ROZEREM) PO SCH (20:09)
[2019-05-02] MEDS: lisinopriL 10 MG TAB PO SCH (20:10)
[2019-05-02] MEDS: LEVEMIR (INSULIN DETEMIR) 1 UNITS/0.01ML SC SCH (20:10)
--- NOTE | 2019-05-02 21:37 | IPN ---
DATE: 05/02/2019 Roshan is seen in progressive care unit (PCU). Five days ago, he started to have problems with vision in his right eye. He says now he cannot see out of the right eye at all. He has right facial pain that is now extending from the right side of his face in the periorbital area to behind the right ear. There is no facial droop weakness nor any rash in this region. No fever. No chills. PHYSICAL EXAMINATION: Afebrile. Vital signs stable. 97 degrees. GENERAL APPEARANCE: He is alert and conversant. The pupils are reactive bilaterally. The globe of the right eye is not injected, nontender, and it does not feel hard on palpation, but he has no vision there. There is no rash on the face. The temporal arteries are nontender and nonpalpable on either side, with attention to the right. LUNGS: Clear. HEART: Regular rhythm. 1/6 systolic murmur. ABDOMEN: Soft, nontender. No masses. Moves arms and legs with equal strength. LABORATORIES: White count is 14.4, hemoglobin is 7.5, platelets 77. Sodium 133, potassium 4.2, BUN 19, creatinine 0.7, glucose 121, magnesium is normal. IMPRESSION: 1. Acute vision loss in right eye. Etiology is unknown. I have been trying to get an vending enterprises supervisor to see him, but there has been none slag production worker or available since the onset of his vision loss. Concerned about possibility this could be related to endocarditis, like a branch retinal artery occlusion or retinal hemorrhage. I have a text out to one of the ophthalmologists to see whether he would be available to see this patient tomorrow. I have ordered a stat MRI of the brain with and without contrast. We will proceed from there. 2. Methicillin-sensitive Staphylococcus aureus endocarditis. He is on Ancef 2 grams every 8 hours. 3. 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 He has anemia and panthrombocytopenia and these are stable. 4. Congestive heart failure, preserved ejection fraction. Well-compensated now. 5. Hyponatremia. This has resolved. 6. Hypomagnesemia. This also has resolved.
[2019-05-03] VITALS (25 sets, daily range): BP systolic 134–151; BP diastolic 56–67; O2SAT 88–98
[2019-05-03] MEDS: IPRATROPIUM 0.5MG/ALBUTEROL 2.5MG INH SOL UD 3ML (DUONEB)(J7620) NEB SCH ×7 (00:12→23:57)
[2019-05-03] MEDS: ACETAMINOPHEN TAB 650MG DOSE (2X325MG) PO PRN ×3 (01:42→20:07)
[2019-05-03] MEDS: CEPACOL LOZENGE PO PRN ×2 (02:31→09:19)
[2019-05-03] MEDS: ceFAZolin SOD 2 GM in IV 1 EA IV SCH ×3 (02:33→18:02)
[2019-05-03] MEDS: SODIUM CHLORIDE 0.9% INJ 10 ML SYR IV SCH ×2 (06:19→18:02)
[2019-05-03 06:44] LABS: HEMATOCRIT 24.9 % (42.0-52.0); HEMOGLOBIN 8.5 g/dl (13.5-17.5); MEAN CORPUSCULAR HGB CONC 34.1 g/dl (32.0-36.5); RED BLOOD COUNT 2.83 10^6/uL (4.30-6.10); WHITE BLOOD COUNT 17.5 10^3/uL (4.0-10.0)
[2019-05-03 06:47] LABS: PLATELET COUNT, AUTOMATED 99 10^3/uL (150-450)
[2019-05-03] MEDS: HumaLOG INSULIN (NovoLOG) PER UNIT SC SCH ×4 (07:30→20:09)
[2019-05-03 07:33] LABS: BLOOD UREA NITROGEN 16 MG/DL (7-18); CALCIUM LEVEL 8.1 MG/DL (8.8-10.2); CARBON DIOXIDE LEVEL 28 MEQ/L (21-32); CHLORIDE LEVEL 94 MEQ/L (98-107); CREATININE FOR GFR 0.55 MG/DL (0.70-1.30); GLOMERULAR FILTRATION RATE > 60.0 (>42); GLUCOSE, FASTING 33 MG/DL (70-100); MAGNESIUM LEVEL 1.9 MG/DL (1.8-2.4); SODIUM LEVEL 129 MEQ/L (136-145)
[2019-05-03] MEDS: TIOTROPIUM INHALER/CAPSULE (SPIRIVA) INH SCH (08:22)
[2019-05-03] MEDS: ASPIRIN 81 MG ENTERIC TAB PO SCH (08:58)
[2019-05-03] MEDS: allopurinoL 100 MG TAB PO SCH (08:58)
[2019-05-03] MEDS: FINASTERIDE 5 MG TAB PO SCH (08:58)
[2019-05-03] MEDS: FUROSEMIDE 40 MG TAB PO SCH (08:58)
[2019-05-03] MEDS: POTASSIUM CHLORIDE 10 MEQ SR TABLET PO SCH (08:58)
[2019-05-03] MEDS: predniSONE 20 MG TAB PO SCH (08:59)
[2019-05-03] MEDS: TAMSULOSIN 0.4 MG CAP PO SCH (08:59)
[2019-05-03] MEDS: LORATADINE 10 MG TAB PO SCH (08:59)
[2019-05-03] MEDS: SPIRONOLACTONE 50 MG TAB PO SCH (08:59)
[2019-05-03] MEDS: PANTOPRAZOLE 40MG TAB (PROTONIX) PO SCH (08:59)
[2019-05-03] MEDS: DOCUSATE SODIUM 100 MG CAP PO SCH ×2 (08:59→20:08)
[2019-05-03] MEDS: MAGNESIUM OXIDE 400 MG TAB (MAG-OX) PO SCH ×2 (08:59→20:08)
[2019-05-03] MEDS: DULoxetine 30 MG CAP (CYMBALTA) PO SCH (08:59)
[2019-05-03] MEDS: LEVALBUTEROL 1.25 MG/0.5 ML CONCENTRATE NEB INH PRN (10:14)
--- NOTE | 2019-05-03 11:26 | IPN ---
DATE: 05/03/2019 Roshan is seen in PCU. Case has been discussed with Dr. Cormier of cardiology and Dr. Mason of infectious disease. I am concerned that Roshan is not responding to medical therapy for his Methicillin Staphylococcus aureus endocarditis. Specifically, I am concerned he might have had an embolic event to his right eye, he lost vision in that about 4-5 days. There has been no ophthalmology consultation available, but the case was discussed informally with an superintendent maintenance airports who felt most likely he had either a branch retinal artery occlusion or a central retinal artery occlusion, none of which require specific treatment besides that directed towards the endocarditis. His sed rate and C-reactive protein are rising as is his white count, despite appropriate antibiotic therapy. Clinically he seems to be declining as well. PHYSICAL EXAMINATION: 140/56, pulse of 100, respirations 18, 97% oxygen saturation. He is afebrile. General appearance: He is lying in bed. He was hypoglycemic this morning so he is still recovering from that. He does not have any vision grossly in the right eye. No facial droop or weakness. Lungs clear. Heart regular rhythm, 1/6 systolic ejection murmur. Abdomen soft, nontender, no masses. Moves arms and legs with equal strength. LABORATORIES: White count is 17.5, hemoglobin 8.5, platelets 99, sed rate is up to 63. Sodium is 129, potassium 4, BUN 16, creatinine 0.5, glucose this morning was 33. C-reactive protein is up to 3.4. It was 1.4 on 04/29/19. Repeat blood sugar this morning was 151 after hypoglycemia protocol. IMPRESSION: 1. Methicillin Staphylococcus aureus endocarditis on Ancef 2 grams IV every 8 hours. Concerned that he is not responding to this. Case discussed with infectious disease and cardiology. We will get a formal cardiology consultation, but consensus is he warrants transfer for consideration of surgical intervention. His surgical risk is high as this patient has cirrhosis, but he is not responding to what should be appropriate medical therapy. 2. Acute vision loss right eye. Suspect retinal artery or a branch retinal artery occlusion from his endocarditis. Ophthalmology will be available tomorrow if the patient is still here, but assessment will be limited as there is no real ophthalmology equipment available on the floor. I ordered a stat MRI scan with and without contrast yesterday. It still has not been done. This is being held up because the patient has a stent in his "left leg." Suspect related to peripheral arterial disease. This was done at the [facility] and the MRI people will not do the MRI until we know exactly what stent was placed. I am skeptical that we will be able to obtain these records from the [facility] though we will try. Cardiology's is that the patient should be able to tolerate this, but MRI staff is insisting on model number, etc., of the stent which I think is frankly not going to be something we can find. 3. Cirrhosis with thrombocytopenia and anemia. These are stable, but he does have significant increased surgical risk from his cirrhosis. 4. Congestive heart failure (CHF) with preserved ejection fraction. Seems compensated. 5. Hyponatremia. This waxes and wanes, but has been stable. Prognosis is poor. He is not responding to conservative treatment and surgical risk is elevated.
--- NOTE | 2019-05-03 11:57 | CR ---
DATE OF CONSULTATION: 05/03/2019 REASON FOR CONSULTATION: Endocarditis, failing therapy resulting in possible embolization of the right retinal artery. HISTORY OF PRESENT ILLNESS: Mr. Denise is a 73-year-old male with a pertinent past medical history of chronic obstructive pulmonary disease (COPD), congestive heart failure, liver cirrhosis, who presented to our emergency room (ER) for 1 day of fevers, chills, and shortness of breath. He noticed for the last 24 hours prior to our presentation, he had a chronic cough that was worsening with some rhinorrhea and right-sided hip pain, which he rated as a 10/10. He states at home he noticed he was unable to get warm. He states he had a maximum temperature (T-max) of 103 at home and then in the ER had a temperature of 100.3. He does note he had multiple hospitalizations in the last couple of months at the [facility]; his last one being in February. While he was admitted, his blood cultures came back positive for methicillin sensitive Staphylococcus aureus (MSSA). He underwent a transesophageal echocardiogram (SIMEON) by Dr. Cormier on 05/01/2019, which found him to have vegetation in his posterior mitral leaflets as well as early vegetations on his aortic cusps, and a very prominent atherosclerosis of the thoracic aorta including a mural thrombus. He was initially on vancomycin and Zosyn for antibiotic coverage and then was switched to cefazolin on 04/25/2019 and has continued to be on it. It was recommended that he would have 6 weeks of IV antibiotics and end therapy on 06/09/2019. Initially, he was not a surgical candidate. About 5 days ago, he started to experience some vision with his right eye but he noticed yesterday morning, he has complete vision loss in his right eye. He is unable to see at all. He notes to have some right facial pain that extended from the right side of his face at the periorbital area to his right ear. There was no focal muscle weakness noted on the face though. He continues to complain of complete vision loss this morning. We do not have ophthalmology service here at the hospital at this current time but after talking to Dr. Coppola, there was a recommendation that we need to treat the underlying problem which is the endocarditis which is the possible source of the embolization. A stat MRI of the head was ordered yesterday but was not completed for the patient does have a [facility] in [facility] A release of information consent was sent to we can obtain records, so we can get an MRI done prior to transfer to [place] for cardiac surgery as a result of embolization despite being on antibiotic therapy for his endocarditis. PAST MEDICAL HISTORY: 1. Chronic obstructive pulmonary disease (COPD). 2. Sleep apnea. Is noncompliant with BiPAP. 3. 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 4. Hypertension. 5. Peripheral vascular disease, status post [facility] in the [facility]. 6. Diabetes neuropathy. 7. Liver cirrhosis. 8. History of gout. PAST SURGICAL HISTORY: 1. Status pot right total knee replacement. 2. Left knee surgery. 3. Left total hip replacement. 4. Lumbar fusion. SOCIAL HISTORY: Admits he is not a current drinker and was a former smoker. FAMILY HISTORY: Reviewed and positive for diabetes. ALLERGIES: ASPIRIN, unknown reaction though. CURRENT ANTIBIOTIC MEDICATION: Cefazolin 2 grams every 8 hours for 6 weeks, end of therapy is 06/09/2019. PHYSICAL EXAMINATION: VITALS: Temperature 97.2, pulse 100, respiration 18, blood pressure 140/56 (MAP of 84), pulse ox 97% on room air. GENERAL: This is a very pleasant 72-year-old male who does not appear in acute distress but appears uncomfortable during exam who is unable to see with his right eye. He is not using any accessory muscles and speaking in complete sentences. HEENT: Pupils are reactive surprisingly but does endorse complete visual defect in the right eye. Conjunctiva does not appear injected. When tracking finger bilaterally, does endorse discomfort with movement on the right eye but when you close the right eye with the hand, he does state there is no discomfort with eye tracking on the left eye. He is able to track in all four planes with the left eye but not in the right eye. NECK: No jugular venous distention (JVD) presently noted. Difficult to assess carotid bruit due to adventitious lung sounds. LUNGS: Expiratory wheeze appreciated diffusely and bilateral positive bronchophony appreciated as well bilaterally. HEART: Difficult to assess due to adventitious lung sounds but does appear regular rate and rhythm. I cannot hear for any murmurs. Heart does appear a little faint due to lung sounds, so I cannot appreciated any murmurs, rubs or gallops. ABDOMEN: Slightly distended but it is nontender and there is positive bowel sounds in all four quadrants. There is some minimal discomfort over the suprapubic area but no sharp tenderness just a sensation of fullness. EXTREMITIES: There is 1+ pitting edema up to the knees bilaterally but no calf tenderness appreciated. NEURO: Focal deficit does have right eye vision loss but there is no facial weakness, facial drooping, slurred speech and there is no lagging in extraocular movements bilaterally. CURRENT LABORATORY DATA: WBC 17.5, hemoglobin 8.5, hematocrit 24.9, platelet 99. Chemistry: Sodium 129, potassium 4.0, chloride 94, carbon dioxide 28, ion gap 7, BUN 16, creatinine 0.55, fasting glucose 33. ESR on 05/02/2019 was 63 and CRP on was 3.46 which is increased from 1.49 on 04/29/2019. Microbiology: Initially on 04/21/2019 positive times two for methicillin sensitive Staphylococcus aureus (MSSA). No growth on 04/25/2019 and 04/26/2019 times two. SIMEON performed by Dr. Cormier on 04/27/2019 shows vegetation in the posterior mitral leaflets as well as early vegetation small thread-like echodensity on aortic cusps, possible early vegetations as well as a mural thrombus in the thoracic aorta with very prominent atherosclerosis. ASSESSMENT: Mr. Denise is a 73-year-old male with the pertinent past medical history of recent hospitalizations in February in the [place], peripheral vascular disease with stent in the left leg, chronic obstructive pulmonary disease (COPD), hypertension, and liver cirrhosis who presented to our emergency room for fevers, chills, and shortness of breath. The patient was diagnosed with methicillin sensitive Staphylococcus aureus (MSSA). Endocarditis and was started on IV antibiotics for 6 weeks of IV therapy, which is complicated with vision loss of the right eye. IMPRESSION: 1. 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 2. Congestive heart failure with preserved ejection fraction. 3. 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 4. Chronic obstructive pulmonary disease (COPD). 5. Sleep apnea noncompliant with BiPAP. 6. History of hypertension. 7. History of peripheral vascular disease status post stenting of the left leg. 8. Diabetes neuropathy. 9. Liver cirrhosis. 10. History of gout. PLAN: At this current time, patient is being treated for his MSSA endocarditis with cefazolin 2 grams, which will continue as such. Because of the fact that he has an acute vision loss with possible embolization from his endocarditis, the patient does meet criteria for valve replacement and will need to be transferred. The fact that he has vegetation in two valves as well as a mural thrombi in his thoracic aorta, I am unsure of the prognosis status post surgery and how well he will tolerate it. The patient does have underlying COPD for which he does have wheezing on exam today. So he is not completely stable but is being treated with steroids and Xopenex as needed. At the current time, we will get the MRI of the brain to see if he has had acute stroke versus an occlusion in the retinal artery. We are waiting for records to be sent from the [facility] to see what type of stent he has placed so he can proceed with the MRI which I do not believe should have been an issue. We will give a call out to Dr. Pierce to see if he will accept the patient at [facility] and the patient will be need to be transferred. MIGUEL A
[2019-05-03] MEDS: RAMELTEON 8 MG TAB (ROZEREM) PO SCH (20:07)
[2019-05-03] MEDS: lisinopriL 10 MG TAB PO SCH (20:07)
[2019-05-03] MEDS: LEVEMIR (INSULIN DETEMIR) 1 UNITS/0.01ML SC SCH (20:09)
--- NOTE | 2019-05-03 20:27 | IPN ---
INFECTIOUS DISEASE PROGRESS NOTE DATE: 05/03/2019 Mr. Denise was examined at bedside, has no new complaints. He remains on intravenous (IV) cefazolin and continues to be afebrile, with a maximum temperature (T-max) in the past 24 hours of 98.1. He continues to have a persistent leukocytosis with a rising white count and, unfortunately, a rising CRP as well. He is having some mild shortness of breath continuing into today. Reeves has been taken out and we are continuing a voiding trial at this point. Otherwise, he is doing well without any chest pain, skin rashes, nausea, vomiting or diarrhea. He continues to have difficulty with his vision, with complete blackout of the right eye and intermittent episodes of blacking out in the left eye. No other paresthesia or drift or changes on neuro exams per staff. PHYSICAL EXAMINATION: VITAL SIGNS: Temperature 98, pulse 108, respirations 18, blood pressure 137/62, mean arterial pressure (MAP) 87, pulse oximetry 94% on room air. Resting comfortably in bed, no acute distress, awake, alert and oriented times three. HEENT: Unable to accurately detect visual field with the right eye- loss of vision and color. With the left eye, visual field intact. Neck is supple, without any appreciable jugular venous distention (JVD). HEART: Normal S1, S2. Regular rhythm, borderline tachycardic. Holosystolic 3/6 murmur heard best over the left sternal border with radiation to the axilla. LUNGS: Clear throughout, without any wheezing, rhonchi or rales. Equal chest rise bilaterally. ABDOMEN: Soft, obese, nontender, nondistended. EXTREMITIES: 1+ pitting edema bilaterally up to the knees. SKIN: No visible rashes. LABORATORY DATA: WBC 17.5 up from 14.4 yesterday, hemoglobin and hematocrit (H and H) 8.5/24.9, platelets 99. Sodium 129, potassium 4, BUN 16, creatinine 0.55. CRP 3.46 yesterday, up from 1.495. Most recent blood cultures from 04/25/2019 and 04/26/2019 are negative after five days. Prior to that, blood cultures were positive on 04/24/2019, 04/22/2019, 04/21/2019, all for methicillin-sensitive Staphylococcus aureus (MSSA). Urine culture on 04/22/2019 positive also for MSSA. IMPRESSION: 1. 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 2. Visual loss, progressing 3. Liver cirrhosis with thrombocytopenia. 4. Urinary retention with chronic benign prostatic hypertrophy (BPH). PLAN: Despite a lengthy course of antibiotics thus far, Mr. Denise continues to have a rising right count and worsening CRP, along with worsening neurologic effect, including visual field loss that may be related to his vegetation that may have become systemic. We will obtain a STAT carotid ultrasound today, as well as an MRI of the head ordered. Given that he is having these worsening symptoms and his clinical picture, the best place for him at this point appears to transfer back to [facility] or [facility] for a possible aortic valve replacement, especially given the fact that we do not have ophthalmology or invasive cardiology services available here. We will defer this surgical decision to [facility] team. We recommend transferring out, knowing that he is a poor surgical candidate in light of his cirrhosis, but it appears we have very limited options for him here at this point. We have discussed this with Mr. Denise and he is agreeable to being transferred out. Until then, we will continue current antibiotic regimen and await imaging ordered, as well as repeat blood cultures. MIGUEL A
--- NOTE | 2019-05-03 22:05 | REPVR ---
PROCEDURE INFORMATION: Exam: US Duplex Bilateral Extracranial Arteries Exam date and time: 05/03/2019 9:01 PM Age: 73 years old Clinical indication: Pain; Visual disturbance; Other: Neck; Additional info: Neck pain, vision loss TECHNIQUE: Imaging protocol: Real-time Duplex ultrasound scan of the bilateral carotid and vertebral arteries combining mauricio scale, color Doppler and spectral waveform analysis. Bilateral exam. COMPARISON: No relevant prior studies available. FINDINGS: Right common carotid artery: The right common carotid artery demonstrates flow proximally measuring 54 cm/s, mid velocity of 33 cm/s and distal velocity of 168 cm/s. Right internal carotid artery: No identifiable flow. Right ICA/CCA ratio: Not obtainable Right external carotid artery: No flow is identified within the right external carotid artery or right internal carotid artery although some flow is likely present allowing for identifiable flow in the common carotid artery. Right vertebral artery: The right vertebral artery demonstrates antegrade flow with velocity of 46 cm/s. Left common carotid artery: Left proximal common carotid artery velocity is 145 cm/s, mid velocity is 113 cm/s and distal velocity is 81 cm/s. Left internal carotid artery: The left proximal internal carotid artery is irregular with velocity of 204 cm/s, mid velocity of 189 cm/s and distal velocity of 168 cm/s. There is prominent plaque. Left ICA/CCA ratio: The left ICA/CCA ratio is 1.4. Left external carotid artery: The left external carotid artery demonstrates velocity of 442 cm/s. Left vertebral artery: The left vertebral artery demonstrates antegrade flow with velocity of 78 cm/s. IMPRESSION: 1. Prominent plaque at the right carotid bifurcation with no identifiable flow in the right external or internal carotid arteries. Flow is noted in the common carotid artery which would indicate some flow into either of the carotid vessels although would be a very high-grade stenosis. 2. Prominent plaque at the left carotid bifurcation with probably 70-90% stenosis of the external carotid artery and 50-70% stenosis of the left internal carotid artery. REFERENCES: Carotid Stenosis Reference using SRU criteria: Mild: less than 50% stenosis. ICA PSV is less than 125 cm/second and plaque or intimal thickening is visible. Moderate: 50-69% stenosis. ICA PSV is 125 to 230 cm/second and plaque is visible. Severe: 70-94% stenosis. ICA PSV is more than 230 cm/second and visible plaque and lumen narrowing are seen. Near occlusion: 95-99% stenosis. ICA PSV is variable and significant plaque and luminal narrowing are seen. Occluded: 100% stenosis. No flow identified. Electronically signed by: Serge Figueroa On 05/03/2019 22:05:25 PM
[2019-05-03] MEDS: ATORVASTATIN 20 MG TAB PO SCH (23:09)
[2019-05-03 23:40] LABS: HEMOGLOBIN A1c 6.1 %
[2019-05-03 23:58] LABS: CHOLESTEROL RISK RATIO 3.483 (<5)
[2019-05-04] VITALS (14 sets, daily range): BP systolic 125–161; BP diastolic 57–80; O2SAT 90–99
[2019-05-04] MEDS: ACETAMINOPHEN TAB 650MG DOSE (2X325MG) PO PRN ×5 (00:05→21:52)
[2019-05-04] MEDS: CEPACOL LOZENGE PO PRN ×5 (00:08→20:02)
[2019-05-04] MEDS: ceFAZolin SOD 2 GM in IV 1 EA IV SCH ×3 (03:18→19:56)
[2019-05-04] MEDS: IPRATROPIUM 0.5MG/ALBUTEROL 2.5MG INH SOL UD 3ML (DUONEB)(J7620) NEB SCH ×6 (04:20→23:51)
[2019-05-04] MEDS: SODIUM CHLORIDE 0.9% INJ 10 ML SYR IV SCH ×2 (04:26→17:49)
[2019-05-04 04:50] LABS: HEMATOCRIT 24.1 % (42.0-52.0); MEAN CORPUSCULAR HEMOGLOBIN 29.9 pg (27.0-33.0); MEAN CORPUSCULAR HGB CONC 33.2 g/dl (32.0-36.5); MEAN CORPUSCULAR VOLUME 89.9 fl (80.0-96.0); PLATELET COUNT, AUTOMATED 82 10^3/uL (150-450); RED BLOOD COUNT 2.68 10^6/uL (4.30-6.10); WHITE BLOOD COUNT 11.7 10^3/uL (4.0-10.0)
[2019-05-04 05:15] LABS: ALBUMIN 1.8 GM/DL (3.2-5.2); ALT/SGPT 23 U/L (12-78); BILIRUBIN,DIRECT 0.7 MG/DL (0.0-0.2); BILIRUBIN,TOTAL 1.6 MG/DL (0.2-1.0); BLOOD UREA NITROGEN 17 MG/DL (7-18); CALCIUM LEVEL 7.8 MG/DL (8.8-10.2); CARBON DIOXIDE LEVEL 26 MEQ/L (21-32); CHLORIDE LEVEL 96 MEQ/L (98-107); CREATININE FOR GFR 0.64 MG/DL (0.70-1.30); GLOMERULAR FILTRATION RATE > 60.0 (>42); GLUCOSE, FASTING 121 MG/DL (70-100); MAGNESIUM LEVEL 1.6 MG/DL (1.8-2.4); POTASSIUM SERUM 4.5 MEQ/L (3.5-5.1); SODIUM LEVEL 129 MEQ/L (136-145); TOTAL PROTEIN 6.4 GM/DL (6.4-8.2)
[2019-05-04 05:17] LABS: INR 1.47; PROTHROMBIN TIME 17.6 SECONDS (11.8-14.0)
[2019-05-04] MEDS: TIOTROPIUM INHALER/CAPSULE (SPIRIVA) INH SCH (07:02)
[2019-05-04] MEDS: ASPIRIN 81 MG ENTERIC TAB PO SCH (08:04)
[2019-05-04] MEDS: FINASTERIDE 5 MG TAB PO SCH (08:04)
[2019-05-04] MEDS: SPIRONOLACTONE 50 MG TAB PO SCH (08:04)
[2019-05-04] MEDS: HumaLOG INSULIN (NovoLOG) PER UNIT SC SCH ×4 (08:04→19:46)
[2019-05-04] MEDS: LORATADINE 10 MG TAB PO SCH (08:05)
[2019-05-04] MEDS: MAGNESIUM OXIDE 400 MG TAB (MAG-OX) PO SCH ×2 (08:05→20:02)
[2019-05-04] MEDS: TAMSULOSIN 0.4 MG CAP PO SCH (08:05)
[2019-05-04] MEDS: PANTOPRAZOLE 40MG TAB (PROTONIX) PO SCH (08:05)
[2019-05-04] MEDS: predniSONE 20 MG TAB PO SCH (08:05)
[2019-05-04] MEDS: DOCUSATE SODIUM 100 MG CAP PO SCH ×2 (08:05→19:46)
[2019-05-04] MEDS: FUROSEMIDE 40 MG TAB PO SCH (08:05)
[2019-05-04] MEDS: DULoxetine 30 MG CAP (CYMBALTA) PO SCH (08:05)
[2019-05-04] MEDS: allopurinoL 100 MG TAB PO SCH (08:05)
[2019-05-04] MEDS: POTASSIUM CHLORIDE 10 MEQ SR TABLET PO SCH (08:06)
--- NOTE | 2019-05-04 08:48 | IPN ---
DATE: 05/04/2019 Mr. Denise has not been doing well. I had communication with Dr. Walker yesterday, the cardiac surgeon from [facility] in [place]. I explained the situation to him. Unfortunately, he is skeptical about the surgery because people with liver cirrhosis carry a very high surgical mortality especially if it is more severe than class A, which unfortunately Mr. Denise has at least class B. As a new finding today the patient complains about fairly severe headache that started about an hour ago. He continues to complain about blindness in his right eye. Carotid ultrasound performed yesterday revealed fairly severe bilateral carotid artery disease, more on the right than left side. On the positive side, the patient denies any dyspnea or chest discomfort. VITAL SIGNS: Blood pressure 125/57, heart rate 94. He is afebrile. Saturation 100% on room air. His fluid balance yesterday was positive about 500 mL. He made about 1650 mL of urine. Weight is 96 kg. He is alert and oriented appropriate. His jugular venous pulse (JVP) does not look high. Lungs are reasonably clear even though occasional wheezes are noted. Heart exam reveals regular rhythm without gallop. There is a murmur over the base as well as apical murmur but both of them are fairly faint. Bilateral carotid bruits are noted, also not very prominent. Abdomen is soft and nontender. Extremities have no edema. Neurologically, he is intact other than the visual deficit. Basic Metabolic Panel: Sodium 129, potassium 4.5, BUN 17, creatinine 0.6, glucose 121. CBC reveals WBC count 11.7, hemoglobin 8, hematocrit 24, platelet count 82,000. Carotid ultrasound as per history above. His blood cultures from the first and second so far have been negative, so the last positive blood culture is from March. ASSESSMENT AND PLAN: Mr. Denise is a 73-year-old man who has underlying liver cirrhosis and chronic obstructive pulmonary disease (COPD), and peripheral vascular disease presented with fever, chills and shortness of breath and was found to have Staphylococcus aureus bacteremia, and a transesophageal echocardiogram revealed evidence for vegetation on mitral valve and also tiny vegetations on aortic valve possibly indicated two-vessel endocarditis. As a further complication, he developed blindness in his right eye and as of this morning also complains about headache, even though there is no nausea or vomiting. Unfortunately, this is a difficult and challenging situation. I will contact cardiac surgery at [facility] again, and I still believe that the patient would be better off taken care of a tertiary facility, but unfortunately it is probable that he is not a good surgical candidate and he may never be operated on. I am also somewhat concerned about the fact that the brain MRI was not performed because we were not able to get information about the nature of his stent in his lower extremity. I believe that urology and vascular surgery should be involved as well. Unfortunately, I am afraid that the combination of his diseases has made for overall a very poor prognosis. I spoke with Dr. Desir.
--- NOTE | 2019-05-04 10:24 | REP ---
CT brain without contrast: History: Severe headache. No comparison CT study. Findings: Digital preliminary [employer] professional [employer] radiograph is unremarkable. Bone window settings demonstrate an intact bony calvarium. Heavy vascular calcifications noted in the distal internal carotid arteries. There is an air-fluid level in the apex of the right maxillary sinus. The visualized paranasal sinuses are otherwise clear. No intraorbital abnormality is seen. On soft tissue window settings, the lateral, third, and fourth ventricles are normal in size and position. There is no evidence of intracranial hemorrhage. No mass, infarction, extra-axial fluid collection or midline shift is seen. Camacho white differentiation pattern is normal above and below the tentorium. Impression: Vascular calcification and minimal volume loss. No acute intracranial abnormality. Air-fluid level in the apex of the right maxillary sinus noted incidentally. Electronically Signed by Graham Coreas MD 05/04/2019 10:16 A
--- NOTE | 2019-05-04 11:54 | IPNPDOC ---
Text Note Date of Service The patient was seen on 05/04/19. NOTE Subjective: Patient is 73-year-old male with a PMHx of Liver cirrhosis, HTN, PVD, COPD, NIDDM2, Neuropathy, Gout . Presented to the emergency room with complaints of shortness of breath, worsening of his productive cough, associated chills and symptoms of an upper respiratory tract infection. Patient was admitted to hospitalist service for further evaluation and treatment Patient was seen and examined at the bedside. Currently patient is seen sitting up in chair. He denies any significant chest pain, shortness of breath or palpitations. Denies nausea, vomiting, abdominal pain, diarrhea, or urinary discomfort. Objective: Vitals (See below) General: Lying in bed, appears comfortable, AAOx3 HEENT: NC, AT CVS: +S1S2 Lungs: Fair air entry b/l, no significant wheezing / rhonchi / rales Abdomen: Soft, ND, NT Extremities: Trace bilateral pitting edema, - Calf tenderness Assessment and plan: MSSA bacteremia - 2/2 Endocarditis - Patient has experienced visual loss on the right side; suspected to be possibly from septic emboli - Hemodynamically stable and afebrile - Leukocytosis has fluctuated - ECHO (SIMEON) 05/01: 1. Mobile echodensity attached to posterior mitral leaflet, in this clinical setting likely representing vegetation even though fibroelastoma is in differential diagnosis. Mild mitral insufficiency. 2. Sclerotic abnormalities of tricuspid aortic valve with small thread-like echodensities apparent on several of aortic cusps. No stenosis or insufficiency of the valve. In this clinical setting most likely representing vegetations. 3. Normal tricuspid and pulmonic valves. 4. Normal left ventricular (LV) systolic function. 5. Intact atrial septum. 6. Normal left atrial appendage. 7. Normal flow in both left and right-sided pulmonary veins. 8. Very prominent atherosclerosis of thoracic aorta including mural thrombus. - c/w Cefazolin - ID and Cardiology on consultation - We'll possibly consider transfer to [place] for cardiothoracic surgery evaluation for valve replacement Acute vision loss right eye - possibly 2/2 septic emboli - Duplex US Carotid 05/02: 1. Prominent plaque at the right carotid bifurcation with no identifiable flow in the right external or internal carotid arteries. Flow is noted in the common carotid artery which would indicate some flow into either of the carotid vessels although would be a very high-grade stenosis. 2. Prominent plaque at the left carotid bifurcation with probably 70-90% stenosis of the external carotid artery and 50-70% stenosis of the left internal carotid artery. - MRI has been ordered stat, however, given the patient's stent placement in his left leg radiology is hesitant to proceed - Records from stent placement have been ordered - Ophthalmology on consultation; awaiting input Headache - CT head 05/03: Vascular calcification and minimal volume loss. No acute intracranial abnormality. Air-fluid level in the apex of the right maxillary sinus noted incidentally. Cirrhosis w/ Thrombocytopenia and Anemia - Child-Kendrick Score for Cirrhosis Mortality of Class B - abdominal surgery josiah- operative mortality of 30% - Currently appears stable Chronic Preserved EF CHF - No evidence of exacerbation at this time - c/w Spironolactone, Furosemide - Cardiology on consultation COPD - No evidence of exacerbation at this time - c/w supplemental oxygen - c/w Prednisone; will taper - c/w inhaled therapy as ordered HTN - BP well controlled - c/w Lisinopril DLP - c/w Atorvastatin and ASA 81 IDDM2 - c/w ISS and Levemir Gout - c/w Allopurinol BPH - c/w Tamsulosin and Finasteride Hyponatremia - Has remained relatively stable GERD - c/w Protonix DVT prophylaxis - c/w TEDs/Sequentials Prognosis: - Poor Disposition: - Possible transition to [place] for cardiothoracic surgery evaluation VSMalvin, I+O VSMalvin I+O Laboratory Tests 05/04/19 04:35 Vital Signs Date Time Temp Pulse Resp B/P (MAP) Pulse Ox O2 Delivery O2 Flow Rate FiO2 05/04/19 08:00 97.4 94 20 125/57 (79) 100 05/04/19 05:00 Room Air 04/29/19 18:00 2.0 I&O- Last 24 Hours up to 6 AM 05/04/19 06:00 Intake Total 1800 ml Output Total 950 ml Balance 850 ml MAUREEN LOWRY MD May 04, 2019 11:54
[2019-05-04] MEDS: RAMELTEON 8 MG TAB (ROZEREM) PO SCH (19:55)
[2019-05-04] MEDS: ATORVASTATIN 20 MG TAB PO SCH (19:55)
[2019-05-04] MEDS: lisinopriL 10 MG TAB PO SCH (19:55)
[2019-05-04] MEDS: LEVEMIR (INSULIN DETEMIR) 1 UNITS/0.01ML SC SCH (19:56)
[2019-05-05] VITALS (25 sets, daily range): BP systolic 104–158; BP diastolic 38–67; O2SAT 88–98
[2019-05-05] MEDS: ceFAZolin SOD 2 GM in IV 1 EA IV SCH ×3 (02:08→20:13)
[2019-05-05] MEDS ORDERED: traMADol 50 MG TAB PO ONE (02:45)
[2019-05-05] MEDS: IPRATROPIUM 0.5MG/ALBUTEROL 2.5MG INH SOL UD 3ML (DUONEB)(J7620) NEB SCH ×5 (04:00→20:09)
[2019-05-05] MEDS: SODIUM CHLORIDE 0.9% INJ 10 ML SYR IV SCH ×2 (04:09→17:58)
[2019-05-05 04:59] LABS: HEMATOCRIT 25.1 % (42.0-52.0); HEMOGLOBIN 8.6 g/dl (13.5-17.5); MEAN CORPUSCULAR HEMOGLOBIN 30.8 pg (27.0-33.0); MEAN CORPUSCULAR HGB CONC 34.3 g/dl (32.0-36.5); PLATELET COUNT, AUTOMATED 93 10^3/uL (150-450); RED BLOOD COUNT 2.79 10^6/uL (4.30-6.10); WHITE BLOOD COUNT 13.2 10^3/uL (4.0-10.0)
[2019-05-05 05:24] LABS: BLOOD UREA NITROGEN 10 MG/DL (7-18); CALCIUM LEVEL 7.5 MG/DL (8.8-10.2); CARBON DIOXIDE LEVEL 26 MEQ/L (21-32); CHLORIDE LEVEL 93 MEQ/L (98-107); CREATININE FOR GFR 0.53 MG/DL (0.70-1.30); GLOMERULAR FILTRATION RATE > 60.0 (>42); GLUCOSE, FASTING 108 MG/DL (70-100); MAGNESIUM LEVEL 1.4 MG/DL (1.8-2.4); SODIUM LEVEL 125 MEQ/L (136-145)
[2019-05-05] MEDS ORDERED: PHENYLEPHRINE 2.5% OPHTH SOL 2ML OU ONE (06:30)
[2019-05-05] MEDS ORDERED: TROPICAMIDE 1% OPHTH SOLN 2ML OU ONE (06:30)
[2019-05-05] MEDS: ACETAMINOPHEN TAB 650MG DOSE (2X325MG) PO PRN (06:47)
[2019-05-05] MEDS: HumaLOG INSULIN (NovoLOG) PER UNIT SC SCH ×3 (07:30→17:08)
[2019-05-05] MEDS: TIOTROPIUM INHALER/CAPSULE (SPIRIVA) INH SCH (07:34)
[2019-05-05] MEDS: allopurinoL 100 MG TAB PO SCH (08:30)
[2019-05-05] MEDS: LORATADINE 10 MG TAB PO SCH (08:30)
[2019-05-05] MEDS: DOCUSATE SODIUM 100 MG CAP PO SCH (08:30)
[2019-05-05] MEDS: FUROSEMIDE 40 MG TAB PO SCH (08:30)
[2019-05-05] MEDS: TAMSULOSIN 0.4 MG CAP PO SCH (08:30)
[2019-05-05] MEDS: PANTOPRAZOLE 40MG TAB (PROTONIX) PO SCH (08:30)
[2019-05-05] MEDS: MAG SULF 1GM/100ML (MAG RUN) 1 GM in IV 1 EA IV SCH ×2 (08:30→09:44)
[2019-05-05] MEDS: MAGNESIUM OXIDE 400 MG TAB (MAG-OX) PO SCH (08:31)
[2019-05-05] MEDS: FINASTERIDE 5 MG TAB PO SCH (08:31)
[2019-05-05] MEDS: SPIRONOLACTONE 50 MG TAB PO SCH (08:31)
[2019-05-05] MEDS: DULoxetine 30 MG CAP (CYMBALTA) PO SCH (08:31)
[2019-05-05] MEDS: ASPIRIN 81 MG ENTERIC TAB PO SCH (08:31)
[2019-05-05] MEDS: POTASSIUM CHLORIDE 10 MEQ SR TABLET PO SCH (08:31)
[2019-05-05] MEDS: traMADol 50 MG TAB PO PRN ×2 (10:22→16:23)
--- NOTE | 2019-05-05 10:35 | IPN ---
DATE: 05/05/2019 Mr. Denise was seen and examined this morning during bedside rounds with Dr. Cormier. He was sitting in his chair. Does not appear to be in any acute distress but states that he did not eat his breakfast this morning for it was very painful to swallow. Nursing has noticed that his hoarseness has not gotten better and the patient has had a reduction in food intake in the last 48 hours. Patient denies having food getting stuck in his throat or having any vomiting episodes. He does not like to swallow. He just says he has pain with swallowing. He does endorse that he has some pain with swallowing liquids but as bad. There were no overnight events reported on telemetry. PHYSICAL EXAMINATION: VITALS: Temperature 97.6, pulse 105, respirations 20, blood pressure 140/58 (MAP 85), pulse ox 97% on room air. GENERAL: This is a very pleasant 73-year-old male who does not appear in acute distress sitting in the chair appropriately answering questions. No using any accessory muscles but has a hoarseness in his voice. Can speak in 6-8 word sentences without trouble breathing. HEENT: Atraumatic, normocephalic. Extraocular movement is intact. Continues unable to see through the right eye. Tender lymphadenopathy on the right SCM. Only one enlarged lymph node can be really truly appreciated on the right. There is one enlarge one on the left as well but not as significant as the right. There is no thyromegaly. Mucous membranes appear moist. No oral thrush is noted. Mallampati score of 1. No exudate or tonsillar abscess or swelling noted on the base of the tongue or in the back of the throat. HEART: Surprisingly regular rate and rhythm. No audible murmurs, rubs or gallops. But heart sounds were distant again so I am not sure if there is an underlying murmur that I cannot appreciate. ABDOMEN: Continues to be slightly distended but is nontender. There is positive bowel sounds. No discomfort over the suprapubic area today. EXTREMITIES: 1+ pitting edema to the ankles bilaterally, but no calf tenderness as well. NEURO: Acute vision loss in the right eye but there is no focal weakness, fascial drooping or slurred speech. There is a hoarseness in his voice. There is no lagging in extraocular movements bilaterally and no nystagmus appreciated. LABORATORIES: WBC 13.2, hemoglobin 8.6, hematocrit 25.1, platelets 93. Chemistry: Sodium 125, potassium 4.0, chloride 93, carbon dioxide 26, Ion gap 6, BUN 10, creatinine 0.53, fasting glucose 108, calcium 7.5, magnesium 1.4. Microbiology: Blood cultures times two negative for growth on 04/25/2019 and 04/26/2019 as well as 05/03/2019 and 05/04/2019 no growth for 24 hours. Carotid ultrasound bilaterally from 05/03/2019 shows prominent plaque in the right carotid bifurcation with no identifiable flow in the right external or internal carotid artery. Prominent plaque in the left carotid bifurcation with probable 70-90% stenosis on the external and 50-70% stenosis in the left internal carotid artery. With the pertinent past medical history of peripheral vascular disease with a stent in his left leg, chronic obstructive pulmonary disease (COPD), hypertension and liver cirrhosis Child-Kendrikc class B, who presented with fevers, chills and shortness of breath. 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 Currently has acute vision loss of the right eye. IMPRESSION: 1. 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 2. 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 3. Congestive heart failure with preserved ejection fraction. 4. Anemia secondary to liver cirrhosis. 5. Chronic obstructive pulmonary disease (COPD). 6. Sleep apnea noncompliant with BiPAP. 7. Hypertension. 8. Peripheral vascular disease, status post stent in the left leg. 9. Diabetes with neuropathy. 10. Liver cirrhosis Child-Kendrick class B. 11. History of gout. 12. 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 13. High grade stenosis of the left carotid artery. 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 Continue antibiotics as prescribed. For his acute vision loss, we are not sure if this is secondary to the embolization or the fact that he has high grade stenosis in his carotids. The paint technician saw the patient yesterday and said he has complete retinal artery occlusion which we do not know what the source is. We do recommend that neurology be called to evaluate the patient. At this current time because of his endocarditis anticoagulation should not be considered until the underlying endocarditis is improving. For possible transfer to [facility]. At this current time, we are still trying to reach out to cardiac thoracic surgery at [facility] to see if they will accept the patient. Because of his Child-Kendrick score of B, the likelihood is very low. But we will still reach out to see if he can be transferred for further recommendations because he has this high grade carotid stenosis that needs to be evaluated as well, which is not urgent at this current time. So our following recommendations from cardiac standpoint is continue with the atorvastatin 40 mg and the furosemide 40 mg daily and the IV antibiotics as prescribed.
[2019-05-05] MEDS: CEPACOL LOZENGE PO PRN ×2 (11:47→16:22)
[2019-05-05] MEDS ORDERED: FLOM0.4C39 PO (13:00)
[2019-05-05] MEDS ORDERED: FURO40TA2 PO (13:00)
[2019-05-05] MEDS ORDERED: SORE15LO PO (13:00)
[2019-05-05] MEDS ORDERED: ATOR1TAB21 PO (13:00)
[2019-05-05] MEDS ORDERED: CEFA1SOL IV (13:00)
[2019-05-05] MEDS ORDERED: TRAM50TA2 PO (13:00)
--- NOTE | 2019-05-05 13:03 | CR ---
DATE OF CONSULTATION: 05/05/2019 Ophthalmology consultation regarding right eye vision loss. HISTORY OF PRESENT ILLNESS: This is a 73-year-old white male who was admitted for bacterial endocarditis with identified aortic and mitral valve vegetation. He relates a history of right eye vision loss approximately 6-7 days ago upon waking up. There was no pain associated with this. Prior to his hospitalization about 1 month ago, the vision in both eyes was about equal and he states "normal," using only over-the counter reading glasses for near vision. He routinely follows up with his windshield installer at the [facility] ([place] in [place]. Patient denies any flashes or floaters. Denies any discharge. He states that the vision has not improved in the right eye since the change approximately 1 week ago. PAST MEDICAL HISTORY: Please see chart, but significant for bacterial endocarditis with identified mitral and aortic valve lesion. PAST OCULAR HISTORY: Routinely follows with ophthalmology at the [place] in [place]. Denies any prior ocular surgeries, eyedrops. Only uses over-the counter reading glasses. PAST OCULAR SURGERY: None. ALLERGIES: Please see chart. MEDICATIONS: Please see chart. EXAM: On limited bedside exam, the patient is a contact isolation for a history of methicillin-resistant Staphylococcus aureus (MRSA). He is sitting somewhat comfortably in a chair next to the bed watching TV. The visual acuity without glasses in the right is essentially no light perception, in the left eye at least 2200. Able to count fingers at about 8 feet and read some letters on the TV screen approximately 10-12 feet away. Extraocular muscles are full bilaterally. The pupils are pharmacologically dilated. The confrontation and visual portillo in the right. Generalized loss in the left eye. Full to count fingers. Lids, lashes, and adnexa, there is moderate dermatochalasis both eyes. There are no lesions on the eyelids or eyelashes or on the scalp both eyes. Conjunctivae and sclerae are white and quiet both eyes. There is no injection or discharge. The corneas are clear both eyes. The anterior chamber is deep quiet both eyes. In the lens there is 2+ nuclear sclerosis both eyes. A dilated fundus exam was performed with a 20 diopter lens and indirect illumination. Cup-to-disc ratio in the right eye is 0.2 with some pallid optic nerve edema. There is a faint mcmahon red spot. The left eye is 0.2 with sharp, pink, and flat optic nerve. The macula in the right shows questionable thickening. The left eye is within normal limits. The vessels in the right eye show attenuation. Left eye is within normal limits. In the periphery there are no holes, tears, or detachments bilaterally. ASSESSMENT AND PLAN: Likely central retinal artery occlusion given the current clinical scenario and profound vision loss in the right eye, likely from vegetative embolus. This likely occurred approximately 6-7 days. Unfortunately, there is no acute treatment for this condition. The patient should be medically optimized and treat the underlying cause. He states that he may be transferred to [facility] later today for further treatment of his cardiac condition, so in that case he should be examined in approximately 3-5 days by ophthalmology. There is a significant risk that he may develop neovascular glaucoma, so this should be monitored over time. This information was related to the primary care team as well as the nurse taking care of the patient. Thank you for the consultation.
--- NOTE | 2019-05-05 13:18 | DS.PDOC ---
Discharge Summary General Date of Admission Apr 22, 2019 at 00:31 Date of Discharge 05/05/2019 Discharge Summary PROCEDURES PERFORMED DURING STAY: PICC line insertion 04/28/2019 with IR Transesophageal ECHO 04/27/[address] Cormier ADMITTING DIAGNOSES / DISCHARGE DIAGNOSES: MSSA bacteremia - 2/2 Endocarditis Acute vision loss right eye - possibly 2/2 septic emboli Headache Cirrhosis w/ Thrombocytopenia and Anemia Chronic Preserved EF CHF COPD HTN DLP IDDM2 Gout BPH Hyponatremia GERD DVT prophylaxis COMPLICATIONS/CHIEF COMPLAINT: Shortness of breath HISTORY OF PRESENT ILLNESS: Patient is 73-year-old male with a PMHx of Liver cirrhosis, HTN, PVD, COPD, NIDDM2, Neuropathy, Gout . Presented to the emergency room with complaints of shortness of breath, worsening of his productive cough, associated chills and symptoms of an upper respiratory tract infection. Patient was admitted to hos pitalist service for further evaluation and treatment. Differentials were shortness of breath included pneumonia, COPD and congestive heart failure. Ultimate patient's blood cultures grew positive for gram positives cocci. HOSPITAL COURSE: MSSA bacteremia - 2/2 Endocarditis - Patient has experienced visual loss on the right side; suspected to be possibly from septic emboli - Hemodynamically stable and afebrile - Leukocytosis remains fluctuant - ECHO ([facility]) 05/01: 1. Mobile echodensity attached to posterior mitral leaflet, in this clinical setting likely representing vegetation even though fi broelastoma is in differential diagnosis. Mild mitral insufficiency. 2. Sclerotic abnormalities of tricuspid aortic valve with small thread-like echodensities apparent on several of aortic cusps. No stenosis or insufficiency of the valve. In this clinical setting most likely representing vegetations. 3. Normal tricuspid and pulmonic valves. 4. Normal left ventricular (LV) systolic function. 5. Intact atrial septum. 6. Normal left atrial appendage. 7. Normal flow in both left and right-sided pulmonary veins. 8. Very prominent atherosclerosis of thoracic aorta including mural thrombus. - c/w Cefazolin - ID and Cardiology on consultation - Will be transferred to [facility] for cardiothoracic surgery evaluation for valve replacement Acute vision loss right eye - possibly 2/2 septic emboli - Duplex US Carotid 05/02: 1. Prominent plaque at the right carotid bifurcation with no identifiable flow in the right external or internal carotid arteries. Flow is noted in the common carotid artery which would indicate some flow into either of the carotid vessels although would be a very high-grade stenosis. 2. Prominent plaque at the left carotid bifurcation with probably 70-90% stenosis of the external carotid artery and 50-70% stenosis of the left internal carotid artery. - MRI has been ordered stat, however, given the patient's stent placement in his left leg radiology is hesitant to proceed - Records from stent placement have been ordered; review does not reveal any stenting performed; but has suggested endarterectomy completion at left femoral artery - Ophthalmology on consultation; has reported that there is likely complete retinal artery occlusion Headache - CT head 05/03: Vascular calcification and minimal volume loss. No acute intracranial abnormality. Air-fluid level in the apex of the right maxillary sinus noted incidentally. - Discussed with ID; will c/w current antibiotic regimen Cirrhosis w/ Thrombocytopenia and Anemia - Child-Kendrick Score for Cirrhosis Mortality of Class B - abdominal surgery josiah- operative mortality of 30% - Currently appears stable Chronic Preserved EF CHF - No evidence of exacerbation at this time - c/w Spironolactone, Furosemide - Cardiology on consultation COPD - No evidence of exacerbation at this time - c/w supplemental oxygen - c/w Prednisone; will taper - c/w inhaled therapy as ordered HTN - BP well controlled - c/w Lisinopril DLP - c/w Atorvastatin and ASA 81 IDDM2 - c/w ISS and Levemir Gout - c/w Allopurinol BPH - c/w Tamsulosin and Finasteride Hyponatremia - Has remained relatively stable GERD - c/w Protonix DVT prophylaxis - c/w TEDs/Sequentials; was started on Heparin SQ DISCHARGE MEDICATIONS: Please see below. ALLERGIES: Please see below. PHYSICAL EXAMINATION ON DISCHARGE: Vitals (See below) General: Lying in bed, appears comfortable, AAOx3 HEENT: NC, AT CVS: +S1S2 Lungs: Fair air entry b/l, no significant wheezing / rhonchi / rales Abdomen: Soft, nondistended and nontender Extremities: LE reveal trace pitting edema, - Calf tenderness LABORATORY DATA: Please see below. ACTIVITY: [As tolerated]. DISCHARGE PLAN: Plan for follow up immediately on transfer with Dr. Pierce Remain compliant with treatment plan and medications Return to the ER if you experience any problems PROGNOSIS: - Discussed with all of patient's family at the bedside; patient is a high surgical risk for morbidity/mortality given his prior comorbidities - Patient would still like to proceed with evaluation by cardiothoracic surgery given that he is failing medical management currently DISPOSITION: Transfer to [facility] for Cardiothoracic surgery evaluation (Re: Possible valve replacement) DISCHARGE CONDITION: [Stable]. TIME SPENT ON DISCHARGE: 35 minutes Vital Signs/I&Os Vital Signs Date Time Temp Pulse Resp B/P (MAP) Pulse Ox O2 Delivery O2 Flow Rate FiO2 05/05/19 12:00 97.5 70 21 121/58 (79) 97 Room Air 04/29/19 18:00 2.0 I&O- Last 24 Hours up to 6 AM 05/05/19 06:00 Intake Total 2310 ml Output Total 1600 ml Balance 710 ml Laboratory Data Labs 24H Laboratory Tests 2 05/04/19 17:35: Bedside Glucose (Misc Panel) 184H 05/04/19 19:42: Bedside Glucose (Misc Panel) 121H 05/05/19 04:48: Nucleated Red Blood Cells % (auto) 0.0, Immature Platelet Fraction 7.4, Anion Gap 6L, Glomerular Filtration Rate > 60.0, Calcium Level 7.5L, Magnesium Level 1.4L 05/05/19 11:31: Bedside Glucose (Misc Panel) 162H CBC/BMP Laboratory Tests 05/05/19 04:48 FSBS Laboratory Tests Test 05/04/19 17:35 05/04/19 19:42 05/05/19 11:31 Range/Units Bedside Glucose (Misc Panel) 184 121 162 83-110 MG/DL Microbiology Microbiology 05/04/19 Blood Culture - Preliminary, Resulted No growth after 24 hours . All specim... 05/03/19 Blood Culture - Preliminary, Resulted No growth after 24 hours . All specim... 04/26/19 Blood Culture - Final, Complete NO GROWTH AFTER 5 DAYS 04/25/19 Blood Culture - Final, Complete NO GROWTH AFTER 5 DAYS Discharge Medications Scheduled Allopurinol (Allopurinol) 100 Mg Tab, 100 MG PO DAILY, (Reported) Aspirin (Aspirin EC) 81 Mg Tab, 81 MG PO DAILY, (Reported) Atorvastatin Calcium (Atorvastatin Calcium) 20 Mg Tablet, 40 MG PO QHS Cefazolin Sodium/Dextrose,Iso (Cefazolin 2 G/100 ml-Dextrose) 2 Gm/100 Ml Froz.piggy, 1 CRISTINA IV Q8H Duloxetine Hcl (Duloxetine HCl) 30 Mg Cap, 30 MG PO DAILY, (Reported) Finasteride (Finasteride) 5 Mg Tablet, 5 MG PO DAILY, (Reported) Furosemide (Furosemide) 40 Mg Tablet, 40 MG PO DAILY Metformin HCl (Metformin HCl) 500 Mg Tablet, 500 MG PO BIDWM, (Reported) Pantoprazole Sodium (Pantoprazole Sodium) 40 Mg Tablet.dr, 40 MG PO BID, (Reported) Polyethylene Glycol 3350 (Miralax) 17 Gm Powd.pack, 17 GM PO DAILY, (Reported) Spironolactone (Spironolactone) 50 Mg Tablet, 50 MG PO DAILY, (Reported) Tamsulosin HCl (Flomax) 0.4 Mg Capsule, 0.4 MG PO DAILY Tiotropium [place] (Spiriva) 18 Mcg Cap.w.dev, 1 INHALATION INH DAILY, (Re ported) Scheduled PRN Benzocaine/Menthol (Sore Throat Lozenge) 1 Each Lozenge, 1 WOO PO Q2HP PRN for SORE THROAT Tramadol HCl (Tramadol HCl) 50 Mg Tablet, 50 MG PO Q6HP PRN for MODERATE PAIN (PS 5-7) Allergies Coded Allergies: aspirin (Verified Allergy, Intermediate, unknown, 04/21/19) MAUREEN LOWRY MD May 05, 2019 13:18
[2019-05-05] MEDS ORDERED: HEPARIN SOD (PORCINE) 5000 UNITS/ML VIAL (J1644 PER 1000UNITS) SQ SCH (14:00)
[2019-05-05] MEDS: LEVALBUTEROL 1.25 MG/0.5 ML CONCENTRATE NEB INH PRN (17:25)
[2019-05-05] MEDS ORDERED: FUROSEMIDE 40 MG/4 ML VIAL (J1940) IV ONE (18:00)
--- NOTE | 2019-05-05 18:26 | REP ---
Portable chest, 06:06 p.m., single AP view with the patient sitting: Comparison is 04/22/2019. The lung portillo are clear. The cardiac size is normal. The marina, mediastinum, and skeletal structures are unremarkable. There is a right upper extremity PICC line with the tip in the superior vena cava in satisfactory position, not present previously. Impression: Right upper extremity PICC line, otherwise, negative portable chest. Electronically Signed by Geoffrey Mei MD 05/05/2019 06:18 P
[2019-05-05] MEDS ORDERED: DOBUTamine HCL 500,000 MCG in IV 1 EA IV SCH (18:30)
[2019-05-05] MEDS ORDERED: [UNRECOGNIZED DRUG - CODE] IV (18:47)
--- NOTE | 2019-05-06 06:05 | ECGEPIP ---
[facility] Test Date: 2019-05-05 Pat Name: GALLITO KIMBROUGH Department: Room: [place] [address] Gender: Male [employer] Operator: ADRIANA : 1945 Requested By: MAUREEN LOWRY Order Number: [id number] Reading MD: Sofiya Meredith Measurements Intervals [place] Rate: 46 P: NC: 0 QRS: 80 QRSD: 78 T: 69 QT: 452 QTc: 399 Interpretive Statements COMPLETE HEART BLOCK NEW ABNORMAL RHYTHM ECG NEW STT ABN C/W 04/22/19 Electronically Signed on 05-06-2019 6:05:32 EDT by Sofiya Meredith
--- NOTE | 2019-05-06 13:33 | IPNPDOC ---
Text Note Date of Service The patient was seen on 05/05/19 evening NOTE I was called to evaluate patient after he was noted to be bradycardic at 46 BPM. Clinically patient was reporting shortness of breath Patient was saturating well at 96% on room air. Patient's blood pressure remained normotensive at SBP 100-110. Physical had revealed fluid overload; 2+ pitting edema. EKG was acquired that had revealed a Third degree AV block. CXR was acquired at the time that had revealed no significant increase in congestion. Patient was given a dose of Furosemide 40 IV x 1 dose Called and discussed case with Dr. Cormier (Cardiology) patient was started on Dobutamine drip at 5mcg/kg/min Patient had reported symptomatic improvement after 30 minutes HR remained at 46; but SBP had improved to 120s Patient was transferred to [facility] in stable condition VS,Malvin, I+O VS, Malvin, I+O Vital Signs Date Time Temp Pulse Resp B/P (MAP) Pulse Ox O2 Delivery O2 Flow Rate FiO2 05/05/19 20:15 97.1 60 26 126/48 (74) Nasal Cannula 2.0 05/05/19 20:00 100 I&O- Last 24 Hours up to 6 AM 05/06/19 06:00 Intake Total 910 ml Output Total 120 ml Balance 790 ml MAUREEN LOWRY MD May 06, 2019 13:33
== END 2019-05-05 20:37 | disposition home or self-care (01) | DRG 288 ==
LOC: M ED 20:20 → M ED INP 04-22 00:31 → ENRESERV 04-22 02:34 → M MSPAV 04-22 03:29 → M ICU 04-23 08:53 → M PCU 04-23 16:50
PROVIDERS: ADMIT Internal Medicine; ATTEND Internal Medicine
PROC: 02HV33Z Insertion of Infusion Device into Superior Vena Cava, Percutaneous Approach (ICD-10-PCS; principal; 2019-04-28 16:30)
DX: I33.0 Acute and subacute infective endocarditis (principal); J15.211 Pneumonia due to Methicillin susceptible Staphylococcus aureus; J44.1 Chronic obstructive pulmonary disease with (acute) exacerbation; E87.2 Acidosis; I50.32 Chronic diastolic (congestive) heart failure; H34.231 Retinal artery branch occlusion, right eye; I76 Septic arterial embolism; E87.1 Hypo-osmolality and hyponatremia; R78.81 Bacteremia; J06.9 Acute upper respiratory infection, unspecified; I11.0 Hypertensive heart disease with heart failure; E11.51 Type 2 diabetes mellitus with diabetic peripheral angiopathy without gangrene; I65.23 Occlusion and stenosis of bilateral carotid arteries; M10.9 Gout, unspecified; K21.9 Gastro-esophageal reflux disease without esophagitis; D69.6 Thrombocytopenia, unspecified; N40.0 Benign prostatic hyperplasia without lower urinary tract symptoms; K70.31 Alcoholic cirrhosis of liver with ascites; R51 Headache; Z79.899 Other long term (current) drug therapy; Z79.82 Long term (current) use of aspirin; Z88.6 Allergy status to analgesic agent; Z87.891 Personal history of nicotine dependence; G47.30 Sleep apnea, unspecified; Z91.19 Patient's noncompliance with other medical treatment and regimen; Z96.651 Presence of right artificial knee joint; Z96.642 Presence of left artificial hip joint; E83.42 Hypomagnesemia; B95.61 Methicillin susceptible Staphylococcus aureus infection as the cause of diseases classified elsewhere